=== PATIENT | male | born 1955 | race Caucasian/White ===

== ENCOUNTER 2021-02-10 18:56 | Emergency (ER) | payer MEDICARE, OTHER, SELFPAY ==
--- NOTE | ~2021-02-10 | XR_ITS ---
EXAMINATION: XR chest 2V EXAM DATE: 02/10/2021 19:17 INDICATION: Chest pain. TECHNIQUE: Frontal and lateral projections of the chest obtained and reviewed. There is no prior derick dy for comparison. FINDINGS: Scattered bibasilar subsegmental atelectasis. Pneumonia not excludable. There is no pneumo thorax suspected. There are no pleural effusions. Cardiomediastinal silhouette is normal. There are n o osseous abnormalities identified. IMPRESSION: Scattered basilar linear atelectasis. Pneumonia not excludable. Reviewed, dictated and finalized at location A.
[2021-02-10 19:02] VITALS: PULSE 94; RESP 16; TEMP 36.8; O2SAT 97
--- NOTE | 2021-02-10 19:06 | ECG_ITS ---
Measurements Intervals [place] Rate: 93 P: 72 CA: 160 QRS: -29 QRSD: 90 T: 28 QT: 332 QTc: 414 Interpretive Statements SINUS RHYTHM ATRIAL PREMATURE COMPLEX LOW QRS VOLTAGE IN PRECORDIAL LEADS POOR R WAVE PROGRESSION, ANTERIOR LEADS BASELINE ARTIFACT- I, II, III, AVR, AVL,A VF, V1-V2, V6 BORDERLINE ECG Electronically Signed On 02-11-2021 6:26:13 CDT by Torrey Chris D.O.
[2021-02-10 19:08] VITALS: BP 150/90; PULSE 94; RESP 24; O2SAT 96
[2021-02-10 19:14] LABS: Basophils Absolute Auto 0.1 K/mm3 (0.0-0.1); Basophils Percent Auto 0.4 % (0.2-1.2); Eosinophils Absolute Auto 0.2 K/mm3 (0-0.3); Eosinophils Percent Auto 0.6 % (0-4.4); Hematocrit 47.2 % (42.0-52.0); Hemoglobin 14.4 g/dL (14.0-18.0); Immature Granulocyte Percent A 0.3 % (0-0.5); Lymphocytes Absolute Auto 31.17 K/mm3 (0.9-3.2); Lymphocytes Percent Auto 80.6 % (18.3-44.2); Mean Corpuscular HGB Conc 30.5 g/dl (32-36); Mean Platelet Volume 10.4 fl (7.4-10.4); Monocytes Absolute Auto 2.9 K/mm3 (0.1-0.6); Monocytes Percent Auto 7.5 % (2.6-8.5); Neutrophils Absolute Auto 4.1 K/mm3 (1.3-6.7); Neutrophils Percent Auto 10.6 % (45.5-73.1); Nucleated Red Blood Cells Perc 0.1 % (0.0-0.2); Platelet Count Result 273 k/mm3 (150-375); Red Blood Count 4.97 M/mm3 (4.6-6.20); Red Cell Distribution Width 16.7 % (11.5-14.5); White Blood Count 38.7 K/mm3 (4.5-10.0)
[2021-02-10 19:24] LABS: Anion Gap 9 mmol/L (8-16); Blood Urea Nitrogen 15 mg/dL (9-20); Calcium 9.8 mg/dL (8.4-10.2); Carbon Dioxide 33 mmol/L (22-30); Chloride 95 mmol/L (98-107); Estimated CRCL calculation 77 ml/min; Estimated Glomerular Filt Rate 60; Glucose 134 mg/dL (65-110); Potassium 4.6 mmol/L (3.4-5.0); Sodium 137 mmol/L (137-145)
[2021-02-10] MEDS: ASPIRIN 81 MG CHEWABLE TABLET 324 MG PO (19:26)
[2021-02-10 19:32] LABS: INR 0.8; Partial Thromboplastin Time 26.7 SECONDS (22.3-36.8); Prothrombin Time 11.5 Seconds (11.1-14.7)
[2021-02-10 19:36] LABS: Troponin I < 0.012 ng/mL (0.000-0.034)
--- NOTE | 2021-02-10 20:03 | ED.GENADULT ---
HPI - General Adult General Chief complaint: Chest Pain Stated complaint: diff breathing Time Seen by Provider: 02/10/21 19:15 History of Present Illness HPI narrative: Patient 65-year-old gentleman who presents the emergency department with chief complaint of shortness of breath and chest discomfort. Patient states that he used a new cleaning device for his CPAP machine and noticed that it felt a little strange and woke up and felt a little short of breath. The patient states that subsequently it has been improving slowly through the day and he decided to come to the emergency department for evaluation. The patient denies significant cardiac history Related Data Home Medications Medication Instructions Recorded Confirmed allopurinol 300 mg tablet 300 mg PO DAILY 03/26/20 blood ketone glucose monitor #1 each 03/26/20 ergocalciferol (vitamin D2) 50 mcg 50 mcg PO DAILY 03/26/20 (2,000 unit) capsule fenofibrate nanocrystallized 145 145 mg PO DAILY 03/26/20 mg tablet gemfibrozil 600 mg tablet 600 mg PO DAILY 03/26/20 insulin glargine 100 unit/mL (3 25 unit SUB-Q DAILY ml 03/26/20 mL) subcutaneous pen liraglutide 0.6 mg/0.1 mL (18 mg/3 0.6 mg SUB-Q DAILY 03/26/20 mL) subcutaneous pen injector losartan 25 mg tablet 12.5 mg PO DAILY tablet 03/26/20 mycophenolate mofetil 500 mg tablet 1,000 mg PO Q12H 03/26/20 omega-3 acid ethyl esters 1 gram 2 cap PO DAILY cap 03/26/20 capsule pen needle, diabetic 32 gauge x #10 each 03/26/20/32 potassium citrate 10 mEq (1,080 2,160 mg PO BID 03/26/20 mg) tablet,extended release sildenafil 100 mg tablet 100 mg PO DAILY PRN 03/26/20 tacrolimus 1 mg capsule, 1 mg PO Q12H 03/26/20 immediate-release Allergies Allergy/AdvReac Type Severity Reaction Status Date / Time No Known Allergies Allergy Verified 02/10/21 19:16 Review of Systems Review of Systems: Narrative: A 10 system review of systems was completed on the patient and is negative except for what is stated in the HPI. Nursing and ancillary documentation was reviewed. [facility] Past Medical History Medical History Abscess of chest wall Anemia Ankle pain CPAP (continuous positive airway pressure) dependence Disease of thyroid gland Dysuria Hematuria MALACHI on CPAP Surgical History Surgical History History of cataract extraction History of hernia repair History of liver transplant Family History Family History Mother Heart disease Hypertension Diabetes mellitus Renal disease Social History Social History Smoking status: Never smoker Alcohol intake: never Exam Narrative: Exam Narrative: GENERAL: Well-appearing, well-nourished, and in no acute distress. HEAD: Normocephalic, atraumatic. EYES: PERRLA and EOMI. ENT: Nares clear, no rhinorrhea or epistaxis. Mucous membranes moist. NECK: Supple. CHEST: Clear to auscultation. No respiratory distress. HEART: Regular rate and rhythm. No murmur heard. Normal peripheral pulses. ABDOMEN: Soft, nontender, nondistended, normal active bowel sounds. EXTREMITIES: Normal range of motion. No edema. SKIN: Warm, dry, no rash. NEURO: No focal deficits. Alert and oriented x3. PSYCH: Normal mood and affect. Course Vital Signs Vital signs: Vital Signs Temperature 36.8 C 02/10/21 19:02 Pulse Rate 94 02/10/21 19:02 Respiratory Rate 16 02/10/21 19:02 Pulse Oximetry 97 02/10/21 19:02 Temperature 36.8 C 02/10/21 19:02 Pulse Rate 117 H 02/10/21 21:23 Respiratory Rate 28 H 02/10/21 21:23 Blood Pressure 135/85 02/10/21 21:23 Pulse Oximetry 96 02/10/21 20:30 Medical Decision Making Vital Signs Vital Signs: Vital Signs Temperature 36.8 C 02/10/21 19:02 Pu
[2021-02-10 20:30] VITALS: BP 148/86; PULSE 86; RESP 20; O2SAT 96
[2021-02-10 21:23] VITALS: BP 135/85; PULSE 117; RESP 28
[2021-02-10 21:48] LABS: Add Urine Microscopic? YES; Appearance Urine Clear (Clear); Bilirubin Urine Negative (Negative); Blood Urine 2+ (Negative); Color Urine Yellow (Yellow); Glucose Urine UA Negative (Negative); Ketones Urine Negative (Negative); Leukocyte Esterase Ur Negative LEU/UL (Negative); Nitrate Urine Negative (Negative); Protein Urine Negative (Negative); Specific Grav Ur 1.012 (1.001-1.035); Urobilinogen Urine Negative mg/dL (<2.0); WBC Urine 0-3 /hpf
[2021-02-10 22:44] LABS: Troponin I < 0.012 ng/mL (0.000-0.034)
[2021-02-10 23:30] VITALS: BP 135/85; PULSE 97; RESP 29; O2SAT 95
== END 2021-02-10 23:31 | disposition home or self-care (01) ==
PROVIDERS: Emergency Medicine; Emergency Provider Emergency Medicine; PCP Internal Medicine
DX: R07.89 Other chest pain (principal); D64.9 Anemia, unspecified; G47.30 Sleep apnea, unspecified
CPT/HCPCS: 36415; 71046; 80048; 81001; 84484; 85025; 85610; 85730; 93005; 99284; A9270

== ENCOUNTER 2021-11-06 08:48 | Emergency (ER) | payer MEDICARE, OTHER, SELFPAY ==
[2021-11-06 08:59] VITALS: BP 129/69; PULSE 101; RESP 18; TEMP 36.7; O2SAT 93
--- NOTE | 2021-11-06 10:00 | ED.URI ---
HPI - URI/Sore Throat General Chief Complaint: Upper Respiratory Infection Stated Complaint: Sore Throat Time Seen by Provider: 11/06/21 10:00 Source: patient Mode of arrival: ambulatory Limitations: no limitations History of Present Illness HPI Narrative: 66-year-old male presents with complaint of sore throat for 2 days. Also has redness, drainage, irritation to left eye. Symptoms started after seeing grandchildren. Denies fever. Has had some intermittent headaches, fatigue and body aches. All systems reviewed and negative except as noted above. Related Data Home Medications Medication Instructions Recorded Confirmed allopurinol 11/06/21 cholecalciferol (vitamin D3) 11/06/21 cholecalciferol (vitamin D3) 11/06/21 ezetimibe mg 11/06/21 insulin lispro [Humalog KwikPen SUBCUT 11/06/21 Insulin] levothyroxine [Synthroid] 11/06/21 potassium citrate meq PO 11/06/21 tacrolimus 11/06/21 Allergies Allergy/AdvReac Type Severity Reaction Status Date / Time No Known Allergies Allergy Verified 06/08/21 08:49 Review of Systems Review of Systems: CONSTITUTIONAL: Denies fever, chills, or sweats. EYES: Denies visual changes. Reports redness, discharge, irritation to left eye. ENT: Denies rhinorrhea, congestion. Reports sore throat. Denies otalgia. CARDIOVASCULAR: Denies chest pain, palpitations, or edema. RESPIRATORY: Denies cough or dyspnea. GASTROINTESTINAL: Denies abdominal pain, nausea, vomiting, or diarrhea. GENITOURINARY: Denies dysuria or hematuria. SKIN: Denies rash or itching. MUSCULOSKELETAL: Denies back pain, joint pain, or myalgia. NEUROLOGIC: Denies headache, numbness, or weakness. PSYCHIATRIC: Denies anxiety or depression. All other systems reviewed are negative, except as documented in HPI. [facility] Past Medical History Medical History Abscess of chest wall Anemia Ankle pain CPAP (continuous positive airway pressure) dependence Disease of thyroid gland Dysuria Hematuria MALACHI on CPAP Surgical History Surgical History History of cataract extraction History of hernia repair History of liver transplant Family History Family History Mother Heart disease Hypertension Diabetes mellitus Renal disease Social History Social History Smoking status: Never smoker Alcohol intake: never Comments At time of signature, agree with nursing past medical, surgical, social and family history. There is no relevant family history pertinent to the presenting complaint. Exam Narrative: GENERAL: This is a well-nourished, well-developed patient, in no apparent distress. HEAD: normocephalic, atraumatic. EYES: PERRL. Left sclera and conjunctive a erythematous, swelling to conjunctive a. Yellow purulent drainage noted to left eye. Vision is grossly intact. EARS: External ears normal, auditory canals clear and without drainage, TMs normal without perforation. Hearing grossly intact. NOSE: External nose normal with no obvious nasal discharge, nares without redness, no rhinorrhea. THROAT: Mucous membranes moist, erythema and swelling to posterior pharynx. NECK: Neck supple, non-tender without lymphadenopathy, masses or thyromegaly. CARDIOVASCULAR: Regular rate and rhythm without murmurs, gallops, or rubs. RESPIRATORY: Clear to auscultation. Breath sounds equal bilaterally. No wheezes, rales, or rhonchi. SKIN: warm, Dry, intact with no suspicious lesions or rash, good texture and turgor. NEURO: awake, alert, and oriented to person, place and time. There were no obvious focal neurologic abnormalities. EXTREMITIES: Normal range of motion to all extremities. Course Course Level of Care: Express Care Visit Vital Signs Vital signs: Vital Signs Temperature 36.7 C
== END 2021-11-06 10:10 | disposition home or self-care (01) ==
PROVIDERS: Emergency Provider Nurse Practitioner Family; PCP Internal Medicine
DX: H10.32 Unspecified acute conjunctivitis, left eye (principal); J02.9 Acute pharyngitis, unspecified; G47.33 Obstructive sleep apnea (adult) (pediatric); Z98.49 Cataract extraction status, unspecified eye; Z94.4 Liver transplant status; E07.9 Disorder of thyroid, unspecified
CPT/HCPCS: 87081; 87880; 99213; G0463

== ENCOUNTER 2022-09-19 13:10 | Outpatient (NON) | payer MEDICARE, OTHER, SELFPAY | END 2022-09-19 13:11 | disposition home or self-care (01) | LOC: ANHLAB 13:11 | PROVIDERS: PCP Internal Medicine; Visit Provider Nurse Practitioner | DX: C44.42 Squamous cell carcinoma of skin of scalp and neck (principal) | CPT/HCPCS: 88305; 88331; 88332 ==

== ENCOUNTER 2022-11-18 08:33 | Emergency (ER) | payer MEDICARE, OTHER, SELFPAY ==
--- NOTE | ~2022-11-18 | CT_ITS ---
EXAMINATION: CT abdomen pelvis wo con DATE: 11/18/2022 09:51 INDICATION: Right flank pain TECHNIQUE: Computed tomography (CT) of the abdomen and pelvis was performed without intravenous contr ast. The dose-length product (DLP) was 1716.18 mGy-cm. Automated exposure control and iterative recon struction technique were employed. COMPARISON: 12/27/2011 FINDINGS: Minimal dependent atelectasis is present in the lung bases. The heart size is normal. Gynec omastia is noted. There is calcified coronary artery atherosclerosis. The gallbladder is surgically a bsent. The liver, spleen, pancreas, and adrenal glands are normal. There is mild atrophy of the kidne ys. Cysts of the kidneys measure up to 8.7 cm on the right. There is a 12 mm nonobstructing stone of the left kidney lower pole. No stones are identified in the ureters or bladder. No hydronephrosis or hydroureter. No pathologically enlarged abdominal or pelvic lymph nodes are identified. No free intra peritoneal gas or evidence of bowel obstruction. There is a moderate-sized left lower quadrant ventra l hernia containing fat. The appendix is normal. There is severe lumbar spondylosis. IMPRESSION: 1. No CT correlate for the patient's symptoms. 2. Nonobstructing left nephrolithiasis. Reviewed, dictated and finalized at location B.
[2022-11-18 08:37] VITALS: BP 125/83; PULSE 64; RESP 16; TEMP 36.7; O2SAT 97
[2022-11-18 08:56] LABS: Basophils Percent Auto 0.7 % (0.2-1.2); Eosinophils Absolute Auto 0.1 K/mm3 (0-0.3); Eosinophils Percent Auto 1.7 % (0-4.4); Hematocrit 47.2 % (42.0-52.0); Hemoglobin 14.5 g/dL (14.0-18.0); Immature Granulocyte Absolute 0.06 K/mm3 (0.00-0.031); Lymphocytes Absolute Auto 2.34 K/mm3 (0.9-3.2); Lymphocytes Percent Auto 40.9 % (18.3-44.2); Mean Corpuscular HGB Conc 30.7 g/dl (32-36); Mean Corpuscular Hemoglobin 29.5 pg (26-34); Mean Corpuscular Volume 95.9 fl (80-100); Mean Platelet Volume 11.3 fl (7.4-10.4); Monocytes Absolute Auto 0.4 K/mm3 (0.1-0.6); Monocytes Percent Auto 7.3 % (2.6-8.5); Neutrophils Absolute Auto 2.8 K/mm3 (1.3-6.7); Neutrophils Percent Auto 48.4 % (45.5-73.1); Platelet Count Result 142 k/mm3 (150-375); Red Blood Count 4.92 M/mm3 (4.6-6.20); Red Cell Distribution Width 13.9 % (11.5-14.5); White Blood Count 5.7 K/mm3 (4.5-10.0)
[2022-11-18 09:11] LABS: Alanine Aminotransferase 46 U/L (6-50); Albumin Level 4.3 g/dL (3.5-5.1); Alkaline Phosphatase 62 U/L (38-126); Anion Gap 6 mmol/L (8-16); Aspartate Amino Transferase 43 U/L (17-59); Bilirubin,Total 0.8 mg/dL (0.2-1.3); Blood Urea Nitrogen 16 mg/dL (9-20); Calcium 8.7 mg/dL (8.4-10.2); Carbon Dioxide 31 mmol/L (22-30); Chloride 100 mmol/L (98-107); Estimated CRCL calculation 74 ml/min; Estimated Glomerular Filt Rate 55; Glucose 166 mg/dL (65-110); Potassium 4.8 mmol/L (3.4-5.0); Sodium 137 mmol/L (137-145)
--- NOTE | 2022-11-18 09:15 | ED.BACK ---
HPI - Back Pain/Injury General Chief Complaint: Back Pain/Injury Stated Complaint: back pain Time Seen by Provider: 11/18/22 09:03 History of Present Illness HPI Narrative: 67-year-old male with a history of MALACHI and nephrolithiasis reports for evaluation of right flank pain that started 6 days ago. Patient reports the pain was intermittent at the onset of pain, improved with Tylenol, ice and heat. States yesterday the pain became constant and worsened which caused him to present to the emergency department today. Reports a history of multiple ureterolithiasis, is followed by urology at [facility]. Reports today's pain feels similar to previous ureterolithiasis. He has a known left nephrolithiasis, but is unsure on the right. Denies dysuria, urinary frequency or urgency, hematuria, abdominal pain, nausea, vomiting, fever, body aches, chills. Denies injury to back, saddle anesthesia, numbness or weakness in his legs, bladder or urinary retention or incontinence. Related Data Home Medications Medication Instructions Recorded Confirmed allopurinol 300 mg tablet 11/06/21 06/08/22 cholecalciferol (vitamin D3) 50 11/06/21 06/08/22 mcg (2,000 unit) tablet cholecalciferol (vitamin D3) 50 11/06/21 06/08/22 mcg (2,000 unit) tablet ezetimibe 10 mg tablet mg 11/06/21 06/08/22 insulin lispro 100 unit/mL subcut 11/06/21 06/08/22 subcutaneous pen (Humalog KwikPen (U-100) Insulin) levothyroxine 300 mcg tablet 11/06/21 06/08/22 (Synthroid) potassium citrate 10 mEq (1,080 meq PO 11/06/21 06/08/22 mg) tablet,extended release tacrolimus 1 mg capsule, 11/06/21 06/08/22 immediate-release acalabrutinib 100 mg capsule 100 mg PO Q12H 06/08/22 06/08/22 ([place]ence) Allergies Allergy/AdvReac Type Severity Reaction Status Date / Time No Known Allergies Allergy Verified 11/18/22 10:11 Review of Systems Review of Systems: CONSTITUTIONAL: Denies fever, chills EYES: Denies visual changes, redness, or discharge. ENT: Denies rhinorrhea, congestion, sore throat, or otalgia. CARDIOVASCULAR: Denies chest pain, palpitations, or edema. RESPIRATORY: Denies cough or dyspnea. GASTROINTESTINAL: Denies abdominal pain, nausea, vomiting, or diarrhea. GENITOURINARY: Denies dysuria or hematuria. SKIN: Denies rash or itching. MUSCULOSKELETAL: See HPI NEUROLOGIC: Denies headache, numbness, dizziness, or weakness. PSYCHIATRIC: Denies anxiety or depression. [facility] Past Medical History Medical History Abscess of chest wall Anemia Ankle pain CPAP (continuous positive airway pressure) dependence Disease of thyroid gland Dysuria Hematuria MALACHI on CPAP Surgical History Surgical History History of cataract extraction History of hernia repair History of liver transplant Family History Family History Mother Heart disease Hypertension Diabetes mellitus Renal disease Social History Social History Smoking status: Never smoker Alcohol intake: never Exam Narrative: GENERAL: Well-appearing, well-nourished, and in no acute distress. Patient resting comfortably in exam bed. He is pleasant and conversational. HEAD: Normocephalic, atraumatic. EYES: PERRLA and EOMI. ENT: Nares clear, no rhinorrhea or epistaxis. Mucous membranes moist. Oropharynx without tonsillar hypertrophy exudate or other lesions. NECK: Supple. CHEST: Clear to auscultation. No respiratory distress. No wheezes rales or rhonchi HEART: Regular rate and rhythm. No murmur heard. Normal peripheral pulses. ABDOMEN: Soft, nontender, nondistended, normal active bowel sounds. No CVA tenderness bilaterally. BACK: No midline vertebral spinous tenderness, step-offs or deformities. Tenderness to the right flank extending to R iliac crest. No
[2022-11-18 09:26] LABS: Appearance Urine Clear (Clear); Bacteria Urine None Seen /hpf; Bilirubin Urine Negative (Negative); Color Urine Yellow (Yellow); Glucose Urine UA Trace mg/dL (Negative); Ketones Urine Negative (Negative); Leukocyte Esterase Ur Negative LEU/UL (Negative); Nitrate Urine Negative (Negative); Non Pathogenic Casts 0-2; Protein Urine Negative (Negative); Specific Grav Ur 1.015 (1.001-1.035); Squamous Epithelial Cell Urine None seen /hpf (Few); Urobilinogen Urine 0.2 mg/dL (<2.0); WBC Urine 0-5 /hpf; pH Urine 6.5 (5.0-9.0)
[2022-11-18 09:28] LABS: Add Urine Microscopic? YES
[2022-11-18 09:52] LABS: Lipase 240 U/L (23-300)
[2022-11-18] MEDS: MORPHINE SULFATE (*CRX) 4 MG/ML INJ IV PUSH (09:55)
[2022-11-18] MEDS: SODIUM CHLORIDE 0.9% IV 1,000 ML 999 ML IV CONT (09:55)
[2022-11-18] MEDS: ACETAMINOPHEN 500 MG TABLET 1000 MG PO (09:56)
[2022-11-18 11:15] VITALS: BP 124/82; PULSE 68; RESP 16; O2SAT 96
== END 2022-11-18 11:15 | disposition home or self-care (01) ==
PROVIDERS: Emergency Medicine; Emergency Provider Physician Assistant; PCP Internal Medicine
DX: M54.9 Dorsalgia, unspecified (principal)
CPT/HCPCS: 36415; 74176; 80053; 81001; 83690; 85025; 96361; 96374; 99284; A9270; J2270; J7030

== ENCOUNTER 2023-01-20 11:51 | Outpatient (CLI) | payer MEDICARE, OTHER, SELFPAY ==
--- NOTE | ~2023-01-20 | XR_ITS ---
EXAM: XR abdomen/kub 1V DATE: 01/20/2023 12:13 HISTORY: KIDNEY STONE, PT DENIES SYMPTOMS . COMPARISON: 01/30/2012; CT abdomen pelvis 11/10/2022. FINDINGS: Atelectasis/scar in the left lung base. Cholecystectomy clips. Normal bowel gas pattern. 1 3 mm calcification projecting over the left inferior pole. Pelvic phleboliths. Degenerative changes i n the spine and bilateral hips. IMPRESSION: Left nephrolithiasis. Reviewed, dictated and finalized at location K. IMPRESSION: Left nephrolithiasis.
== END 2023-01-20 11:52 | disposition home or self-care (01) ==
LOC: ANHIMG 12:01
PROVIDERS: PCP Internal Medicine; Visit Provider Urology
DX: N20.0 Calculus of kidney (principal)
CPT/HCPCS: 74018

== ENCOUNTER 2023-07-11 10:14 | Outpatient (CLI) | payer MEDICARE, OTHER, SELFPAY ==
--- NOTE | ~2023-07-11 | XR_ITS ---
EXAMINATION: XR abdomen/kub 1V INDICATION: Left-sided kidney stone TECHNIQUE: Supine views of the abdomen were obtained on 2 radiographs. COMPARISON: 01/20/2023 FINDINGS: There is an 11 mm stone of the left kidney. Phleboliths are noted in the pelvis. No additio nal urolithiasis is identified. The bowel gas pattern is normal. There is severe lumbar spondylosis. 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 IMPRESSION: 1. Left nephrolithiasis. Reviewed, dictated and finalized at location L. O RECORDING ENGINEER IMPRESSION: 1. Left nephrolithiasis.
== END 2023-07-11 10:15 | disposition home or self-care (01) ==
PROVIDERS: PCP Internal Medicine; Visit Provider Urology
DX: N20.0 Calculus of kidney (principal)
CPT/HCPCS: 74018

== ENCOUNTER 2024-03-26 10:54 | Outpatient (CLI) | payer MEDICARE, OTHER, SELFPAY ==
--- NOTE | ~2024-03-26 | XR_ITS ---
EXAMINATION: XR abdomen/kub 1V DATE: 03/26/2024 11:22 INDICATION: Calcium kidney stone. TECHNIQUE: A supine view of the abdomen on 3 radiographs was obtained. COMPARISON: CT abdomen and pelvis 11/18/2022 FINDINGS: There are no dilated loops of bowel. There is a phlebolith in left pelvis. There is a 12 mm stone in left kidney. There are surgical clips in right abdomen. IMPRESSION: 1. 12 mm left kidney stone. Reviewed, dictated and finalized at location A. IMPRESSION: 1. 12 mm left kidney stone.
== END 2024-03-26 10:55 | disposition home or self-care (01) ==
LOC: ANHIMG 11:01
PROVIDERS: PCP Internal Medicine; Visit Provider Urology
DX: N20.0 Calculus of kidney (principal)
CPT/HCPCS: 74018

== ENCOUNTER 2025-03-31 08:29 | Outpatient (CLI) | payer MEDICARE, OTHER, SELFPAY ==
--- NOTE | ~2025-03-31 | XR_ITS ---
Abdominal radiograph(s) INDICATION: Kidney stone COMPARISON: Abdominal x-ray 03/26/2024 TECHNIQUE: 2 views AP abdomen FINDINGS: Interval aortic endograft repair. Scattered colonic stool. Small bowel gaseous distention. 13 mm left kidney lower pole stone remains in place. No other nephroureteral calculi identified. Pelvic phleboliths. No acute bony abnormality. IMPRESSION: 1. 13 mm stone left kidney remains in place. 2. No other acute abnormality.. Reviewed, dictated and finalized at location R.
--- OUTSIDE RECORDS SUMMARY | 2025-03-31 08:43 | XMS_ITS | Encounter Summary ---
Author Organization [facility] Address [address] [place] [address] Care Team Providers Care Biological Aide Name Role Phone Elias Zaragoza MD Primary Care Provider [phone] Heather Shine RN Unavailable Unavailable Sergey Mcneill MD Unavailable [phone] Dio De Leon MD Unavailable Dawson Smith MD Unavailable Encounter Details Date Type Department Care Team (Late st Contact Info) Description 11/17/2022 Lab Requisition [facility] Care DermPath Lab [address] [place] [id number] Steve Shetty MD [address] [place] [id number] Social History Tobacco Use Types Packs/Day Years Used Date Smoking Tobacco: Never Smokeless Tobacco: Never Alcohol Use Standard Drinks/Week Comments No 0 (1 standard drink = 0.6 oz pur e alcohol) AUDIT-C Answer Date Recorded Q1: How often do you have a drink containing alcohol? Never 11/23/2021 Q2: How many drinks containi ng alcohol do you have on a typical day when you are drinking? Patient does not drink Q3: How often do you have si x or more drinks on one occasion? 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 Answer Date of Assessment Author No 11/23/2021 11:23 AM Tanya Wilson RN * Is person blind or have serious difficulty seeing? Answer Date of Assessment Author No 11/23/2021 11:23 AM Tanya Wilson RN * Does person have serious difficulty walking/climbing stairs? Answer Date of Assessment Author No 11/23/2021 11:23 AM Tanya Wilson RN * Does person have difficulty dressing/bathing? Answer Date of Assessment Author No 11/23/2021 11:23 AM Tanya Wilson RN * Does person have difficulty doing errands alone? Answer Date of Assessment Author No 11/23/2021 11:23 AM Tanya Wilson RN documented as of this encounter Mental Status * Does person have difficulty concentrating/remembering/making decisions? Answer Entry Date Author No 11/23/2021 11:23 AM Tanya Wislon RN documented in this encounter Plan of Treatment Upcoming Encounters Date Type Department Care Team (Late st Contact Info) Description 04/01/2025 9:00 AM CDT Office Visit [facility] - GI 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 Author Medication Management General On track( 025 8:59 AM GLASS RIBBON MACHINE OPERATOR) No Mary Mcclain RN Note: Expected end date: Ongoing Interventions: Take all medications as prescribed Let your doctor know right away about any changes in your medications Make sure to request a refill of your medication at least one week prior to your last dose Safety General On track( 024 8:50 AM CDT) No Mary Stallworth RN Note: Expected end date: ongoing Interventions: Your nurse will assess your risk for falls/injury each visit documented as of this encounter Procedures Procedure Name Priority Date/Time Associated Diagnosis Comments DERMATOPATHOLOGY Routine 11/16/2022 12:0 0 AM CDT documented in this encounter Results * DERMATOPATHOLOGY (11/16/2022 12:00 AM CDT) Case Report Dermatopathology Report Case: [id number] Authorizing Provider: Steve Shetty MD Collected: 11/16/2022 12:00 AM Ordering Location: [facility] D[facility] Lab Received: 11/17/2022 05:33 AM Pathologist: Laquita Carr MD Specimen: Skin, right mid helix 12:45 PM CDT DERMATOPATHOLOGY LABORATORY Final Diagnosis Specimen A. SKIN, right mid helix: SQUAMOUS CELL CARCINOMA IN SITU, VERRUCOUS-HYPERTROP HIC TYPE; PRESENT AT THE BASE OF THE SPECIMEN (D04.21) (see microscopic description and comment) 12:45 PM CDT DERMATOPATHOLOGY LABORATORY at 1244 CDT Clinical History SCCA vs. [place] vs. Other. Path# [id number] 12:45 PM CDT DERMATOPATHOLOGY LABORATORY Gross Description Specimen A: Received is one formalin filled container labeled with the patient's name and designated right mid helix. The specimen consists of a shave biopsy measuring [id number]. Jar 0. 12:45 PM CDT DERMATOPATHOLOGY LABORATORY Microscopic Description Specimen A. SKIN, right mid helix: The epidermis is acanthotic and shows full thickness disorderly maturation of keratinocytes, mitoses at different levels, and dyskeratotic cells. There is overlying parakeratosis and hyperkeratosis. The lesion extends to the base of the biopsy. COMMENT: An invasive squamous cell carcinoma cannot be ruled out. 3 12:45 PM CDT DERMATOPATHOLOGY LABORATORY Disclaimer An external and internal positive and negative controls are appropriate for the histochemical, immunohistochemical and immunofluorescence stain(s) in this case (if any), except where stated explicitly. The performance characteristics of the stain(s) cited in this report were developed and its performance characteristic determined by the Dermatopathology Laboratory at [facility], directed by Dr. Sylvie Mills. These tests need not be, and therefore are not, approved by the [place] Food and Drug Administration. The tests are used for clinical purposes. Billing Codes Specimen Charges Stain Charges 18015 1 3 12:45 PM CDT DERMATOPATHOLOGY LABORATORY Embedded Images 3 12:45 PM CDT DERMATOPATHOLOGY LABORATORY Pathology/Cytolog y TISSUE SPECIMEN FROM SKIN / Unknown 11/16/2022 11/17/2022 5:33 AM CDT us Steve Shetty MD LAB - PATHOLOGY/CYTOLOGY ORDER LAVON Final Result DERMATOPATHOLOGY LABORATORY [facility] - Department of Dermatology [address], [address] [phone] documented in this encounter Visit Diagnoses Not on filedocumented in this encounter Care Teams Biological Aide Relationship Specialty Start Date End Date Elias Zaragoza MD PCP - General 01/16/18 Heather Shine, RN Registered Nurse Hepatology 01/30/18 Sergey Mcneill MD [address] [place] [address] OF HEMATOLOGY & [place] [address] Hematology and Oncology 05/05/20 Dio De Leon MD [address] [place] [address] OF HEMATOLOGY [place] [address] Endocrinology 02/08/22 Dawson Smith MD [address] [address] Vascular Surgery 02/05/25 documented as of this encounter
--- OUTSIDE RECORDS SUMMARY | 2025-03-31 08:43 | XMS_ITS | Encounter Summary ---
Author Organization [facility] Address [address] [facility] [place] [address] Care Team Providers Care Nurses' Aide Name Role Phone Elias Zaragoza MD Primary Care Provider [phone] Heather Shine RN Unavailable Unavailable Sergey Mcneill MD Unavailable Dio De Leon MD Unavailable Dawson Smith MD Unavailable Reason for Visit * Reason Onset Date Comments MEDICATION REFILL 12/31/2018 Encounter Details Date Type Department Care Team (Late st Contact Info) Description 12/31/2018 Refill [facility] GI [address] [place] [address] Aislinn Dodge, PAStevenC [address] [place] [phone] MEDICATION REFILL Social History Tobacco Use Types Packs/Day Years Used Date Smoking Tobacco: Never Smokeless Tobacco: Never Alcohol Use Standard Drinks/Week Comments No 0 (1 standard drink = 0.6 oz pur e alcohol) Sex and Gender Information Value Date Recorded Sex Assigned at Not on file 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 Gender Identity Not on file Sexual Orientation Not on file documented as of this encounter Plan of Treatment Upcoming Encounters Date Type Department Care Team (Late st Contact Info) Description 04/01/2025 9:00 AM CDT Office Visit [facility] - GI [address] [facility], [place] [phone] Aislinn Dodge PA-C [address] [facility] 3L DIV [place] [phone] 08/06/2025 12:45 PM GEOGRAPHIC 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 SYSTEMS ENGINEER Appointment [facility] CANCER CARE DRAWSTATION [address] [facility], 2nd [place] [address] 08/06/2025 1:00 PM GEOGRAPHIC INFORMATION SYSTEMS ENGINEER Office Visit [facility] - Hematology/Oncology [address] [place] [phone] Sergey Mcneill MD [address] DIV OF HEMATOLOGY & [place] [address] documented as of this encounter Visit Diagnoses Not on filedocumented in this encounter Additional Health Concerns Infection Onset Date Last Indicated Resolved Time COVID-19 Under Investigation 12/06/2021 12/06/2021 12/06/2021 10:00 PM CDT documented as of this encounter Care Teams Nurses' Aide Relationship Specialty Start Date End Date Elias Zaragoza MD PCP - General 01/16/18 Heather Shine, ROBERT Registered Nurse Hepatology 01/30/18 Sergey Mcneill MD [address] DIV OF HEMATOLOGY & [place] [address] Hematology and Oncology 05/05/20 Dio De Leon MD [address] DIV OF HEMATOLOGY & [place] [address] Endocrinology 02/08/22 Dawson Smith MD [facility]. [address] [address] Vascular Surgery 02/05/25 documented as of this encounter
--- OUTSIDE RECORDS SUMMARY | 2025-03-31 08:43 | XMS_ITS | Encounter Summary ---
Author Organization [facility] Address [address] [facility] [place] [address] Care Team Providers Care Assembly Machine Tender Name Role Phone Elias Zaragoza MD Primary Care Provider Heather Shine RN Unavailable Unavailable Sergey Mcneill MD Unavailable Dio De Leon MD Unavailable Dawson Smith MD Unavailable Encounter Details Date Type Department Care Team (Late st Contact Info) Description 01/23/2020 Lab Requisition [facility] Care Derm[facility] Lab [address] [facility] [place] [phone] Steve Shetty MD [address] [facility] [place] [address] Social History Tobacco Use Types Packs/Day Years Used Date Smoking Tobacco: Never Smokeless Tobacco: Never Alcohol Use Standard Drinks/Week Comments No 0 (1 standard drink = 0.6 oz pur e alcohol) Sex and Gender Information Value Date Recorded Sex Assigned at Not on file Legal Sex Male 1:09 PM WRAPPER STITCHER Gender Identity Not on file Sexual Orientation Not on file documented as of this encounter Plan of Treatment Upcoming Encounters Date Type Department Care Team (Late st Contact Info) Description 04/01/2025 9:00 AM CDT Office Visit [facility] - GI [address] [facility], [place] [phone] Aislinn Dodge PA-C [address] [facility] 3L [place] [address] 08/06/2025 12:45 PM WRAPPER STITCHER Appointment [facility] CANCER CARE DRAWSTATION [address] [facility], 2nd [place] [address] 08/06/2025 1:00 PM WRAPPER STITCHER Office Visit [facility] - Hematology/Oncology [address] [place] [phone] Sergey Mcneill MD [address] [facility] OF HEMATOLOGY & [place] [address] documented as of this encounter Goals Goal Patient Goal Type Associated Problems Recent Progress Patient-Stated? Author Medication Management General On track( 025 8:59 AM WRAPPER STITCHER) Mary Ricardo, RN Note: Expected end date: Ongoing Interventions: Take all medications as prescribed Let your doctor know right away about any changes in your medications Make sure to request a refill of your medication at least one week prior to your last dose documented as of this encounter Procedures Procedure Name Priority Date/Time Associated Diagnosis Comments DERMATOPATHOLOGY Routine 01/21/2020 12:0 0 AM CDT documented in this encounter Results * DERMATOPATHOLOGY (01/21/2020 12:00 AM CDT) Case Report Dermatopathology Report Case: [id number] Authorizing Provider: Steve Shetty MD Collected: 01/21/2020 12:00 AM Ordering Location: [facility] DermPath Lab Received: 01/23/2020 10:51 AM Pathologist: Laquita Carr MD Specimens: A) - Skin, right post shoulder B) - Skin, left calf 0 1:07 PM CDT DERMATOPATHOLOGY LABORATORY Final Diagnosis Specimen A. SKIN, right post shoulder: SQUAMOUS CELL CARCINOMA IN SITU, PRESENT AT THE BASE OF THE SPECIMEN (D04.61) (see microscopic description and comment) Specimen B. SKIN, left calf: SQUAMOUS CELL CARCINOMA IN SITU, VERRUCOUS-HYPERTROP HIC TYPE (D04.72) 0 1:07 PM CDT DERMATOPATHOLOGY LABORATORY at 1307 CDT Clinical History A: BCCA vs SCCA vs irr SK. Path # [id number]. B: BCCA vs SCCA vs irr SK. Path # [id number]. 0 1:07 PM CDT DERMATOPATHOLOGY LABORATORY Gross Description Specimen A: Received is one formalin filled container labeled with the patient's name and designated right post shoulder. The specimen consists of a shave biopsy measuring 8y5s6me. Jar 0. Specimen B: Received is one formalin filled container labeled with the patient's name and designated left calf. The specimen consists of a shave biopsy measuring 3g0a0bj. Jar 0. 0 1:07 PM CDT DERMATOPATHOLOGY LABORATORY Microscopic Description Specimen A. SKIN, right post shoulder: The epidermis shows parakeratosis, full thickness disorderly maturation of keratinocytes, mitoses at different levels, and dyskeratotic cells. The lesion extends to the base of the biopsy. COMMENT: An invasive squamous cell carcinoma cannot be ruled out. Specimen B. SKIN, left calf: The epidermis is acanthotic and shows full thickness disorderly maturation of keratinocytes, mitoses at different levels, and dyskeratotic cells. There is overlying parakeratosis and hyperkeratosis. 0 1:07 PM CDT DERMATOPATHOLOGY LABORATORY Disclaimer An external and internal positive and negative controls are appropriate for the histochemical, immunohistochemical and immunofluorescence stain(s) in this case (if any), except where stated explicitly. The performance characteristics of the stain(s) cited in this report were developed and its performance characteristic determined by the Dermatopathology Laboratory at [facility], directed by Dr. Sylvie Mills. These tests need not be, and therefore are not, approved by the [place] Food and Drug Administration. The tests are used for clinical purposes. Billing Codes Specimen Charges Stain Charges 90651 90832 1 1 0 1:07 PM CDT DERMATOPATHOLOGY LABORATORY Embedded Images 0 1:07 PM CDT DERMATOPATHOLOGY LABORATORY Pathology/Cytology TISSUE SPECIMEN FROM SKIN / Unknown 01/21/2020 01/23/2020 10:51 AM CDT Miscellaneous samples (specimen) TISSUE SPECIMEN FROM SKIN / Unknown 01/21/2020 01/23/2020 10:51 AM CDT Steve Shetty MD LAB - PATHOLOGY/CYTOLOGY ORDER LAVON Final Result DERMATOPATHOLOGY LABORATORY [facility] - Department of Dermatology Refinery Process Engineer Center/[id number] [place] [address] documented in this encounter Visit Diagnoses Not on filedocumented in this encounter Additional Health Concerns Infection Onset Date Last Indicated Resolved Time COVID-19 Under Investigation 12/06/2021 12/06/2021 12/06/2021 10:00 PM CDT documented as of this encounter Care Teams Assembly Machine Tender Relationship Specialty Start Date End Date Elias Zaragoza MD PCP - General 01/16/18 Heather Shine, ROBERT Registered Nurse Hepatology 01/30/18 Sregey Mcneill MD [address] [place] [address] OF HEMATOLOGY [place] [address] Hematology and Oncology 05/05/20 Dio De Leon MD [address] [place] [address] OF HEMATOLOGY [place] [address] Endocrinology 02/08/22 Dawson Smith MD [address] [address] Vascular Surgery 02/05/25 documented as of this encounter
--- OUTSIDE RECORDS SUMMARY | 2025-03-31 08:43 | XMS_ITS | Encounter Summary ---
Author Organization [facility] Address [address] [place] [address] Care Team Providers Care Wrapping Machine Operator Name Role Phone Elias Zaragoza MD Primary Care Provider Heather Shine RN Unavailable Unavailable Sergey Mcneill MD Unavailable Dio De Leon MD Unavailable Dawson Smith MD Unavailable Encounter Details Date Type Department Care Team (Late st Contact Info) Description 08/08/2022 Lab Requisition [facility] Care DermPath Lab [address] [facility], [place] [phone] Steve Shetty MD [address] [place] [address] Social History Tobacco Use Types Packs/Day [...] on file Legal Sex Male 1:09 PM ECOLOGICAL RISK ASSESSOR Gender Identity Not on file Sexual Orientation [...] Date Author No 11/23/2021 11:23 AM Tanya Wilson RN documented in this encounter Plan of Treatment Upcoming Encounters Date Type Department Care Team (Late st Contact Info) Description 04/01/2025 9:00 AM CDT Office Visit [facility] - GI [address] [facility], [place] [address] Aislinn Dodge PA-C [address] [place] [address] [address] [place] [phone] 08/06/2025 12:45 PM ECOLOGICAL RISK ASSESSOR Appointment [facility] CANCER CARE DRAWSTATION [address] [place] [address], 2nd [place] [address] 08/06/2025 1:00 PM ECOLOGICAL RISK ASSESSOR Office Visit [facility] - Hematology/Oncology [address] [place] [phone] Sergey Mcneill MD [address] [facility] OF HEMATOLOGY & [place] [address] documented as of this encounter Goals Goal Patient Goal Type Associated Problems Recent Progress Patient-Stated? Author Medication Management General On track( 025 8:59 AM ECOLOGICAL RISK ASSESSOR) No Mary Mcclain, RN Note: Expected end date: Ongoing Interventions: Take all medications as prescribed Let your doctor know right away about any changes in your medications Make sure to request a refill of your medication at least one week prior to your last dose Safety General On track( 024 8:50 AM CDT) No Mary Stallworth, RN Note: Expected end date: ongoing Interventions: Your nurse will assess your risk for falls/injury each visit documented as of this encounter Procedures Procedure Name Priority Date/Time Associated Diagnosis Comments DERMATOPATHOLOGY Routine 08/05/2022 12:0 0 AM ECOLOGICAL RISK ASSESSOR documented in this encounter Results * DERMATOPATHOLOGY (08/05/2022 12:00 AM ECOLOGICAL RISK ASSESSOR) Case Report Dermatopathology Report Case: [id number] Authorizing Provider: Steve Shetty MD Collected: 08/05/2022 12:00 AM Ordering Location: [facility] DermPath Lab Received: 08/08/2022 07:34 AM Pathologist: Laquita Carr MD Specimens: A) - Skin, left lateral elbow B) - Skin, crown C) - Skin, right hand 10:15 AM ECOLOGICAL RISK ASSESSOR DERMATOPATHOLOGY LABORATORY Amended Report At the request of the clinician, change in laterality for specimen A to right lateral elbow. 10:15 AM ECOLOGICAL RISK ASSESSOR DERMATOPATHOLOGY LABORATORY Final Diagnosis Specimen A. 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 SKIN, crown: SQUAMOUS CELL CARCINOMA, WELL DIFFERENTIATED (C44.42) Specimen C. SKIN, right hand: SQUAMOUS CELL CARCINOMA IN SITU, PRESENT AT THE BASE OF THE SPECIMEN (D04.61) (see microscopic description and comment) 10:15 AM [facility] DERMATOPATHOLOGY LABORATORY Amendment electronically signed by Laquita Carr MD on 08/31/2022 at 1015 ECOLOGICAL RISK ASSESSOR at 1331 ECOLOGICAL RISK ASSESSOR Clinical History A: R/O SCCA Path# [id number] B: R/O SCCA Path# [id number] C: SCCA vs AK 10:15 AM [facility] DERMATOPATHOLOGY LABORATORY Gross Description Specimen A: Received is one formalin filled container labeled with the patient's name and designated right lateral elbow. The specimen consists of a shave biopsy measuring 21i99j0 mm. Jar 0. Specimen B: Received is one formalin filled container labeled with the patient's name and designated crown. The specimen consists of a shave biopsy measuring 10x8x1 mm. Jar 0. Specimen C: Received is one formalin filled container labeled with the patient's name and designated right hand. The specimen consists of a shave biopsy measuring 6x5x3 mm. Jar 0. 10:15 AM [facility] DERMATOPATHOLOGY LABORATORY Microscopic Description Specimen A. SKIN, right lateral elbow: Sections show an endo exophytic crateriform lesion with a keratotic plug, formed by confluent follicle-like structures with relatively large keratinocytes. Specimen B. SKIN, crown: Arising in the epidermis and extending into the dermis there are irregularly shaped aggregates of keratinocytes showing evidence of premature cornification. Specimen C. SKIN, right hand: The epidermis shows parakeratosis, full thickness disorderly maturation of keratinocytes, mitoses at different levels, and dyskeratotic cells. The lesion extends to the base of the biopsy. COMMENT: An invasive squamous cell carcinoma cannot be ruled out. 10:15 AM [facility] DERMATOPATHOLOGY LABORATORY Disclaimer An external and internal positive and negative controls are appropriate for the histochemical, immunohistochemical and immunofluorescence stain(s) in this case (if any), except where stated explicitly. The performance characteristics of the stain(s) cited in this report were developed and its performance characteristic determined by the Dermatopathology Laboratory at [facility], directed by Dr. Sylvie Mills. These tests need not be, and therefore are not, approved by the [place] Food and Drug Administration. The tests are used for clinical purposes. Billing Codes Specimen Charges Stain Charges 89172 01942 76965 1 1 1 3 10:15 AM ECOLOGICAL RISK ASSESSOR DERMATOPATHOLOGY LABORATORY Embedded Images 3 10:15 AM ECOLOGICAL RISK ASSESSOR DERMATOPATHOLOGY LABORATORY Pathology/Cytology TISSUE SPECIMEN FROM SKIN / Unknown 08/05/2022 08/08/2022 7:34 AM ECOLOGICAL RISK ASSESSOR Miscellaneous samples (specimen) TISSUE SPECIMEN FROM SKIN / Unknown 08/05/2022 08/08/2022 7:34 AM ECOLOGICAL RISK ASSESSOR Miscellaneous samples (specimen) TISSUE SPECIMEN FROM SKIN / Unknown 08/05/2022 08/08/2022 7:34 AM ECOLOGICAL RISK ASSESSOR Steve Shetty MD LAB - PATHOLOGY/CYTOLOGY ORDER LAVON Edited Result - Final DERMATOPATHOLOGY LABORATORY [facility] - Department of Dermatology [facility] Specialized Medicine [facility] [facility], 3rd Floor [address] [phone] documented in this encounter Visit Diagnoses Not on filedocumented in this encounter Care Teams Wrapping Machine Operator Relationship Specialty Start Date End Date Elias Zaragoza MD PCP - General 01/16/18 Heather Shine, ROBERT Registered Nurse Hepatology 01/30/18 Sergey Mcneill MD [address] [place] [address] OF HEMATOLOGY & [place] [address] Hematology and Oncology 05/05/20 Dio De Leon MD [address] [place] [address] OF HEMATOLOGY & [place] [address] Endocrinology 02/08/22 Dawson Smith MD [facility] [address] [place] [address] Vascular Surgery 02/05/25 documented as of this encounter
--- OUTSIDE RECORDS SUMMARY | 2025-03-31 08:44 | XMS_ITS | Encounter Summary ---
Author Organization [employer] Address [address] [place] [address] Care Team Providers Care Coal Drier Operator Name Role Phone Unavailable Primary Care Provider Unavailabl e Encounter Details Date Type Department Care Team (Late st Contact Info) Description 09/15/2004 Outpatient Historical Division of Neurology 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
--- OUTSIDE RECORDS SUMMARY | 2025-03-31 08:44 | XMS_ITS | Encounter Summary ---
Author Organization [employer] Address [address] [place] [address] Care Team Providers Care Application Designer Name Role Phone Unavailable Primary Care Provider Unavailabl e Encounter Details Date Type Department Care Team (Late st Contact Info) Description 03/30/2005 Outpatient Historical Division of Neurology 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
--- OUTSIDE RECORDS SUMMARY | 2025-03-31 08:44 | XMS_ITS | Encounter Summary ---
Author Organization [employer] Address [address] [place] [address] Care Team Providers Care Cupola Tapper Name Role Phone Unavailable Primary Care Provider Unavailabl e Encounter Details Date Type Department Care Team (Late st Contact Info) Description 04/13/2006 Outpatient Historical Division of Neurology [address] [facility] [address] [address] (Excluded Provider) [place] [address] [facility] [address] [place] [address] Social History Tobacco Use Types Packs/Day Years Used Date Smoking Tobacco: Never Assessed Sex and Gender Information Value Date Recorded Sex Assigned at Not on file Legal Sex Male 4:04 AM SNOW RANGER Gender Identity Not on file Sexual Orientation Not on file documented as of this encounter Plan of Treatment Not on file documented as of this encounter Visit Diagnoses Not on filedocumented in this encounter
--- OUTSIDE RECORDS SUMMARY | 2025-03-31 08:44 | XMS_ITS | Clinical Summary ---
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
--- OUTSIDE RECORDS SUMMARY | 2025-03-31 08:44 | XMS_ITS | Encounter Summary ---
Author Organization [employer] Address [address] [place] [address] Care Team Providers Care Closing Manager Name Role Phone Unavailable Primary Care Provider Unavailabl e Encounter Details Date Type Department Care Team (Late st Contact Info) Description 11/18/1999 Outpatient Historical Division of Neurology 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
--- OUTSIDE RECORDS SUMMARY | 2025-03-31 08:44 | XMS_ITS | Encounter Summary ---
Author Organization [employer] Address [address] [place] [address] Care Team Providers Care Literature Teacher Name Role Phone Unavailable Primary Care Provider Unavailabl e Encounter Details Date Type Department Care Team (Late st Contact Info) Description 11/09/2006 Outpatient Historical Division of Neurology 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
--- OUTSIDE RECORDS SUMMARY | 2025-03-31 08:44 | XMS_ITS | Encounter Summary ---
Author Organization [facility] Address [address] [place] [address] Care Team Providers Care Cnc Cutting Operator Name Role Phone Elias Zaragoza MD Primary Care Provider Heather Shine RN Unavailable Unavailable Sergey Mcneill MD Unavailable Dio De Leon MD Unavailable Dawson Smith MD Unavailable Encounter Details Date Type Department Care Team (Late st Contact Info) Description 02/23/2021 Lab Requisition [facility] Care DermPath Lab [address], [place] [phone] Steve Shetty MD [address] [facility] [address] [place] [address] Social History Tobacco Use Types Packs/Day Years Used Date Smoking Tobacco: Never Smokeless Tobacco: Never Alcohol Use Standard Drinks/Week Comments No 0 (1 standard drink = 0.6 oz pur e alcohol) Sex and Gender Information Value Date Recorded Sex Assigned at Not on file Legal Sex Male 1:09 PM JACK OF ALL TRADES Gender Identity Not on file Sexual Orientation Not on file documented as of this encounter Plan of Treatment Upcoming Encounters Date Type Department Care Team (Late st Contact Info) Description 04/01/2025 9:00 AM CDT Office Visit [facility] - GI [address], [place] [id number] Aislinn Dodge PA-C [address] [facility] 3L [place] [id number] 08/06/2025 12:45 PM JACK OF ALL TRADES Appointment [facility] [address] [facility], 2nd [place] [address] 08/06/2025 1:00 PM JACK OF ALL TRADES Office Visit [facility] - Hematology/Oncology [address] [place] [phone] Sergey Mcneill MD [address] [facility] OF HEMATOLOGY & [place] [address] documented as of this encounter Goals Goal Patient Goal Type Associated Problems Recent Progress Patient-Stated? Author Medication Management General On track( 025 8:59 AM JACK OF ALL TRADES) No Mary Mcclain, RN Note: Expected end [...] Priority Date/Time Associated Diagnosis Comments DERMATOPATHOLOGY Routine 02/22/2021 3:33 AM CDT documented in this encounter Results * DERMATOPATHOLOGY (02/22/2021 3:33 AM CDT) Case Report Dermatopathology Report Case: [id number] Authorizing Provider: Steve Shetty MD Collected: 02/22/2021 03:33 AM Ordering Location: [facility] DermPath Lab Received: 02/23/2021 06:29 AM Pathologist: Julieta Proctor MD Specimen: Skin, left medial malar 11:46 AM CDT DERMATOPATHOLOGY LABORATORY Final Diagnosis Specimen A. 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 Path# [id number]. 11:46 AM CDT DERMATOPATHOLOGY LABORATORY Gross Description Specimen A: Received is one formalin filled container labeled with the patient's name and designated left medial malar. The specimen consists of a shave biopsy measuring [id number]. Jar 0. 11:46 AM CDT DERMATOPATHOLOGY LABORATORY Microscopic Description Specimen A. SKIN, left medial malar: The epidermis shows parakeratosis, full thickness disorderly maturation of keratinocytes, mitoses at different levels, and dyskeratotic cells. The proliferation extends down adnexal structures. 11:46 AM CDT DERMATOPATHOLOGY LABORATORY Disclaimer An external and internal positive and negative controls are appropriate for the histochemical, immunohistochemical and immunofluorescence stain(s) in this case (if any), except where stated explicitly. The performance characteristics of the stain(s) cited in this report were developed and its performance characteristic determined by the Dermatopathology Laboratory at [facility], directed by Dr. Sylvie Mills. These tests need not be, and therefore are not, approved by the [place] Food and Drug Administration. The tests are used for clinical purposes. Billing Codes Specimen Charges Stain Charges 17923 1 11:46 AM CDT DERMATOPATHOLOGY LABORATORY Embedded Images 11:46 AM CDT DERMATOPATHOLOGY LABORATORY Pathology/Cytolo gy TISSUE SPECIMEN FROM SKIN / Unknown 02/22/2021 3:33 AM CDT 02/23/2021 6:29 AM CDT us Steve Shetty MD LAB - PATHOLOGY/CYTOLOGY ORDER LAVON Final Result DERMATOPATHOLOGY LABORATORY [facility] Department of Dermatology [facility] [address], 3rd [address] [phone] documented in this encounter Visit Diagnoses Not on filedocumented in this encounter Additional Health Concerns Infection Onset Date Last Indicated Resolved Time COVID-19 Under Investigation 12/06/2021 12/06/2021 12/06/2021 10:00 PM CDT documented as of this encounter Care Teams Cnc Cutting Operator Relationship Specialty Start Date End Date Elias Zaragoza MD PCP - General 01/16/18 Heather Shine, ROBERT Registered Nurse Hepatology 01/30/18 Sergey Mcneill MD [address] [place] [address] OF HEMATOLOGY & [place] [address] Hematology and Oncology 05/05/20 Dio De Leon MD [address] [place] [address] OF HEMATOLOGY & [place] [address] Endocrinology 02/08/22 Dawson Smith MD [facility]. [address] [address] Vascular Surgery 02/05/25 documented as of this encounter
--- OUTSIDE RECORDS SUMMARY | 2025-03-31 08:44 | XMS_ITS | Encounter Summary ---
Author Organization [facility] Address [address] [place] [address] Care Team Providers Care Tungsten Refiner Name Role Phone Unavailable Primary Care Provider Unavailabl e Encounter Details Date Type Department Care Team (Late st Contact Info) Description 08/24/2000 Outpatient Historical Division of Neurology 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
--- OUTSIDE RECORDS SUMMARY | 2025-03-31 08:44 | XMS_ITS | Encounter Summary ---
Author Organization [employer] Address [address] [place] [address] Care Team Providers Care Candles Pourer Name Role Phone Unavailable Primary Care Provider Unavailabl e Encounter Details Date Type Department Care Team (Late st Contact Info) Description 03/08/2007 Outpatient Historical Division of Neurology 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
--- OUTSIDE RECORDS SUMMARY | 2025-03-31 08:44 | XMS_ITS | Encounter Summary ---
Author Organization [employer] Address [address] [place] [address] Care Team Providers Care Dental Secretary Name Role Phone Unavailable Primary Care Provider Unavailabl e Encounter Details Date Type Department Care Team (Late st Contact Info) Description 04/26/2001 Outpatient Historical Division of Neurology 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
--- OUTSIDE RECORDS SUMMARY | 2025-03-31 08:44 | XMS_ITS | Encounter Summary ---
Author Organization [employer] Address [address] [place] [address] Care Team Providers Care Overnight Stocker Name Role Phone Unavailable Primary Care Provider Unavailabl e Encounter Details Date Type Department Care Team (Late st Contact Info) Description 06/16/2004 Outpatient Historical Division of Neurology 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
--- OUTSIDE RECORDS SUMMARY | 2025-03-31 08:44 | XMS_ITS | Encounter Summary ---
Author Organization [employer] Address [address] [place] [address] Care Team Providers Care Fitness Sales Consultant Name Role Phone Unavailable Primary Care Provider Unavailabl e Encounter Details Date Type Department Care Team (Late st Contact Info) Description 09/03/2003 Outpatient Historical Division of Neurology 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
--- OUTSIDE RECORDS SUMMARY | 2025-03-31 08:44 | XMS_ITS | Encounter Summary ---
Author Organization [facility] Address [address] [place] [address] Care Team Providers Care Plywood Factory Worker Name Role Phone Unavailable Primary Care Provider Unavailabl e Encounter Details Date Type Department Care Team (Late st Contact Info) Description 12/14/2004 Outpatient Historical Division of Neurology [address] [address] (Excluded Provider) [place] [address] [facility] [address] [place] [address] Social History Tobacco Use Types Packs/Day Years Used Date Smoking Tobacco: Never Assessed Sex and Gender Information Value Date Recorded Sex Assigned at Not on file Legal Sex Male 4:[address]AFETY ENGINEER Gender Identity Not on file Sexual Orientation Not on file documented as of this encounter Plan of Treatment Not on file documented as of this encounter Visit Diagnoses Not on filedocumented in this encounter
--- OUTSIDE RECORDS SUMMARY | 2025-03-31 08:44 | XMS_ITS | Encounter Summary ---
Author Organization [employer] Address [address] [place] [address] Care Team Providers Care Miller Supervisor Name Role Phone Unavailable Primary Care Provider Unavailabl e Encounter Details Date Type Department Care Team (Late st Contact Info) Description 12/17/2003 Outpatient Historical Division of Neurology 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
--- OUTSIDE RECORDS SUMMARY | 2025-03-31 08:44 | XMS_ITS | Encounter Summary ---
Author Organization [employer] Address [address] [place] [address] Care Team Providers Care Grazing Aide Name Role Phone Unavailable Primary Care Provider Unavailabl e Encounter Details Date Type Department Care Team (Late st Contact Info) Description 12/27/2000 Outpatient Historical Division of Neurology 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
--- OUTSIDE RECORDS SUMMARY | 2025-03-31 08:44 | XMS_ITS ---
Author Organization [facility] Address [address] [facility] [place] [address] Care Team Providers Care Liquified Natural Gas Technician Name Role Phone Elias Zaragoza MD Primary Care Provider [phone] Heather Shine RN Unavailable Unavailable Sergey Mcneill MD Unavailable [phone] Dio De Leon MD Unavailable Dawson Smith MD Unavailable Transplant Episode Liver Recipient [facility] ([place], [place]) - [facility] Organ Received: Liver Transplanted on 09/09/2011 Marked as Active Follow-up on 09/09/2011 Liver CoordinatorHeather Shine RN Phone: N/A Fax: N/A Email: N/A [place] Organ Diagnosis Organ Primary Contributory Liver Cirrhosis: Fatty Liver (FRANCO) Donor Information Organ ABO Source Meets Risk Criteria HLA Match Mismatches Cross Match Liver Transplanted A1 DBD No A: B: DR: Liver Donor Serology Results Anti-CMV CMV IgG: Positive EBV IgG EBV VCA IgM: Positive Anti-HBcAb HBC Total: Negative HBsAg HBsAg: Negative HBV DNA No results on file Anti-HCV HCV: Negative Anti-HIV I/II HIV-1: Negative Anti-HTLV I/II HTLV: Not Done RPR/VDRL RPR: Negative EBV IgM EBV VCA IgM: Positive HBsAb No results on file Toxoplasma No results on file SARS CoV-2 No results on file Care Team Name Role Phone Fax Email Heather Shine RN Liver Coordinator N/A N/A N/A Adryan Kerr MD Referring Physician [phone] N/A Historical Provider, Registered Nurse N/A N/A N/A Clark Jeffers MD Transplant Surgeon [phone] N/A Events Post-Transplant Pre-Transplant Admitted: 09/05/2011 Referred: 11/24/2010 Transplanted: 09/09/2011 Evaluation began: 1 Discharged: 09/15/2011 Center waitlisted: 1
--- OUTSIDE RECORDS SUMMARY | 2025-03-31 08:44 | XMS_ITS | Encounter Summary ---
Author Organization [employer] Address [address] [place] [address] Care Team Providers Care Yarn Hauler Name Role Phone Unavailable Primary Care Provider Unavailabl e Encounter Details Date Type Department Care Team (Late st Contact Info) Description 10/04/2005 Outpatient Historical Division of Neurology 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
--- OUTSIDE RECORDS SUMMARY | 2025-03-31 08:44 | XMS_ITS | Encounter Summary ---
Author Organization [employer] Address [address] [place] [address] Care Team Providers Care Auditing Manager Name Role Phone Unavailable Primary Care Provider Unavailabl e Encounter Details Date Type Department Care Team (Late st Contact Info) Description 04/23/2003 Outpatient Historical Division of Neurology 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
--- OUTSIDE RECORDS SUMMARY | 2025-03-31 08:44 | XMS_ITS | Clinical Summary ---
Author Organization [facility] Address [address] [place] [address] Care Team Providers Care Handle Bender Name Role Phone Elias Zaragoaz MD Primary Care Provider [phone] Heather Shine RN Unavailable Unavailable Sergey Mcneill MD Unavailable [phone] Dio De Leon MD Unavailable Dawson Smith MD Unavailable Source Comments [facility],non-owned Affiliates and Associated Physician Practices is amultiple site organization consisting of ambulatory clinics and hospital sitesin [place]. This disclosure is being madepursuant to the Care Everywhere program and may not contain all information available regarding this patient. Last updated 18.[facility] Allergies Active Allergy Reactions Criticality Noted Date Comments Dulaglutide Diarrhea 02/01/2024 Metformin Diarrhea 01/21/2024 Medications * This document contains information received from the source organization and may not represent a complete record from that organization. * Be aware that medications may not be up to date on this document. Alwaysverify current medications with the patient. insulin glargine (LANTUS) vial Inject 56 (fifty six) Units subcutaneously once daily 06/13/20 16 Active levothyroxine (SYNTHROID) 300 MCG tablet Take 1 (one) tablet by mouth once daily None on mon or monday06/13/20 16 Active sildenafil (VIAGRA) 100 MG tablet Take 1 (one) tablet by mouth as needed Active evolocumab (REPATHA) 140 MG/ML prefilled syringe Inject 140 (one hundred forty) mg subcutaneously every 14 days Active insulin lispro (HUMALOG;ADMELOG) 100 UNIT/ML pen Inject 46 (forty six) Units subcutaneously 3 times daily Active trimethoprim-poly myxin B (POLYTRIM) 34994-2.1 UNIT/ML-% ophthalmic solution 11/07/19 22 Active triamcinolone acetonide (KENALOG) 0.1 % cream 11/20/19 22 Active xmgux-4-ntfh ethyl esters (Lovaza) 1 g capsule Take 2 (two) capsules by mouth 2 times daily 360 capsule 3 11/25/19 23 Active furosemide (Lasix) 40 MG tabletIndications :Hyperlipidemia, unspecified hyperlipidemia type,Hypertension , unspecified type,History of liver transplant (HCC),Type 2 diabetes mellitus with stage 3 chronic kidney disease, unspecified whether intermediate insulin use, unspecified whether stage 3a or 3b CKD (HCC) Take 1 (one) tablet by mouth once daily as needed 15 tablet 5 01/03/20 23 Active Additional Information Patient not taking.Reported on 11/06/2024 allopurinol (Zyloprim) 300 MG tablet Take 1 (one) tablet by mouth once daily 90 tablet 5 01/03/20 23 Active vitamin D, cholecalciferol, 50 MCG (1999) tabletIndications :Hyperlipidemia, unspecified hyperlipidemia type,Hypertension , unspecified type,History of liver transplant (HCC),Type 2 diabetes mellitus with stage 3 chronic kidney disease, unspecified whether intermediate insulin use, unspecified whether stage 3a or 3b CKD (HCC) Take 1 (one) tablet by mouth once daily 90 tablet 5 01/12/20 23 Active pantoprazole EC (Protonix) 40 MG tabletIndications :Gastroesophageal Reflux Disease Take 1 (one) tablet by mouth once daily Reasons: Gastroesophageal Reflux Disease 90 tablet 3 02/23/20 23 Active fenofibrate micronized (Lofibra) 134 MG capsuleIndication s:Hyperlipidemia, unspecified hyperlipidemia type Take 1 (one) capsule by mouth once daily Take with largest meal of the day. 90 capsule 5 04/12/20 23 Active potassium citrate (Urocit K 10) 10 MEQ (1080 MG) tablet Take 1 (one) tablet by mouth 3 times daily with meals 180 tablet 4 04/12/20 23 Active tacrolimus (Prograf) 1 MG capsule Take 1 (one) capsule by mouth 2 times daily 180 capsule 3 05/15/20 23 Active fluticasone propionate (Flonase) 50 MCG/ACT nasal sprayIndications: Allergy, initial encounter SHAKE LIQUID AND USE 2 SPRAYS IN EACH NOSTRIL EVERY DAY 16 g 5 05/15/20 23 Active Additional Information Patient not taking.Reported on 11/06/2024 ezetimibe (Zetia) 10 MG tablet Take 1 (one) tablet by mouth once daily 10/25/19 23 Active [place]-3 Fatty Acids (fish oil) 1000 MG capsule Take 2 (two) capsules by mouth once daily 05/26/20 23 Active tirzepatide (Mounjaro) 10 MG/0.5ML injection Inject 1 Pen subcutaneously every 7 days 09/14/19 24 Active losartan (Cozaar) 25 MG tabletIndications :Hypertension, unspecified type,Acute renal failure superimposed on stage 3a chronic kidney disease, unspecified acute renal failure type (HCC) Take 1 (one) tablet by mouth at bedtime 90 tablet 3 02/27/20 24 Active carboxymethylcell ulose sodium PF 0.5 % ophthalmic solution Instill 2 (two) drops into both eyes 2 times daily 10/11/19 24 Active carboxymethylcell ulose (Refresh Liquigel) 1 % ophthalmic gel Instill into both eyes once daily as needed 10/11/19 24 Active loteprednol (Lotemax) 0.5 % ophthalmic suspension Instill 2 (two) drops into both eyes 2 times daily 10/11/19 24 Active olopatadine (Pataday) 0.1 % ophthalmic solution Instill 2 (two) drops into both eyes 2 times daily 09/28/19 24 Active Semaglutide (Ozempic, 0.25 or 0.5 MG/DOSE,) 2 MG/1.5ML SOPN Inject 2 mg subcutaneously every 7 days Active albuterol HFA (Proventil; Ventolin; Proair) 108 (90 Base) MCG/ACT inhaler Inhale 2 (two) puffs by mouth every 4 hours as needed 05/23/20 23 Active cyclobenzaprine (Flexeril) 5 MG tablet Take 1 (one) tablet by mouth 3 times daily as needed 01/10/20 24 Active fluorouracil (Efudex) 5 % cream Apply to affected area 2 times daily 03/18/20 24 Active BD Pen Needle Katarina 2nd Gen 32G X 4 MM MISC 1 Each 11/15/19 24 Active ipratropium (Atrovent) 0.06 % nasal spray [place] 2 (two) sprays into each nostril 3 times daily 10/11/19 24 Active montelukast (Singulair) 10 MG tablet Take 1 (one) tablet by mouth once daily 05/23/20 23 Active Tiotropium Alva-Olodatero l 2.5-2.5 MCG/ACT Inhale 2 puffs by mouth once daily as needed 08/10/19 24 Active furosemide (Lasix) 20 MG tablet Take 1 (one) tablet by mouth once daily 04/12/20 24 Active rosuvastatin (Crestor) 5 MG tablet Take 1 (one) tablet by mouth once daily Activ e cetirizine (ZyrTEC ALLERGY) 10 MG gel capsuleIndication s:Allergy, initial encounter Take 1 (one) capsule by mouth once daily Patient should follow with PCP for future refills or get OTC. 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) Take 1 (one) tablet by mouth every 12 hours 60 tablet 5 01/04/20 25 Active Active Problems Problem Noted Date Diagnosed Date Surgery, elective 02/05/2025 Chronic obstructive pulmonary disease, unspecifi ed 09/22/2023 09/22/2023 Poorly controlled diabetes mellitus 10/27/2020 Elevated liver enzymes 08/27/2020 CLL (chronic lymphoid leukemia) with failed gris ssion 04/13/2020 Lymphocytosis 02/19/2020 Obstructive sleep apnea 11/27/2019 Other chronic nonalcoholic liver disease 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 Continue atenolol. Overview: Overview: Good control. Continue atenolol. Good control. Good control. Continue atenolol. Good control. Continue atenolol. Bicipital tenosynovitis 01/30/2018 Overview (01/30/2018): heat, rest, nsaids. F/U prn Brachial neuritis 01/30/2018 Overview (01/30/2018): will order a C-spine MRI and refer to PT. May refer to neurosurgeon or Pain management pending MRI results. Diabetes mellitus 01/30/2018 Overview (09/16/2022): Overview: On low dose Lantus. Neoplasm of uncertain behavior of skin 8 Hyperlipidemia 01/30/2018 Overview (01/30/2018): On statin. FRANCO (nonalcoholic steatohepatitis) 01/30/2018 Recurrent nephrolithiasis 01/30/2018 Overview (01/11/2023): S/P ESWL 2005 Cystoureterroscopy removal of stones X2 12/2011 Cystoureterroscopy removal of 1 Cm stone. Stone analysis in 01/2012: Ca Oxalate monohydrate 94%, Ca Phosphate hydroxy 3%, Protein 3% Risk Factors: High Uric ac, Oxalate, Na, slight low Citrate Positive Family Hx of stone: Mom, daughter. CT Scan in 03/2014: Nonobstructing 5 mm left inferior pole renal calculus. Bilateral renal cystic lesions, increased in size. Evaluation for septation and nodularity is limited by lack of intravenous contrast. 24 hrs urine: UV 3.25 L, pH 6.2, Na 451, Ca 679, Citrate 1768, Mg 264, Oxalate 65.8, Uric ac 923, Phos 1950, Sulfate 43, K 196, UCr 4518, Protein 228 mg 12/2014 24 hrs urine: UV 3.00 L, pH 5.9, Na 504, Ca 480, Citrate 1524, Mg 186, Oxalate 66, Uric ac 1005, Phos 2340, Sulfate 35, K 120, UCr 4230, Protein [address] Scan in 11/2019: Nonobstructing 0.7 cm left lower pole renal calculus, minimallymincreased in size. No hydronephrosis. Bilateral renal cysts, slightly increased in size. CT Scan in 10/2022: 1.2 Cm Lt kidney lower pole stone, not obstructing. Rt kidney cyst 8.9 Cm. Squamous cell carcinoma of skin 01/30/2018 Morbid obesity 01/09/2017 Tubular adenoma 11/26/2014 Avascular necrosis of talus 06/09/2014 Obesity 05/28/2014 Diabetes mellitus, type 2 03/01/2012 Overview (10/27/2020): Overview: Overview: Overview: On low dose Lantus. Stopped glucovance. Increased lantus insulin to 32 units dailly, If am glucose persistently > 120 , increase insulin by 7 units weekly until reach goal or below 65. Rx for solostar pin given. Liver transplant recipient in 08/201108/24/2011 Overview (09/16/2022): H/O FRANCO cirrhosis, S/P OTL-TXP 08/2011 CT without contrast 03/2014: Diffuse hepatic steatosis. Nonspecific mesenteric/retroperitoneal lymphadenopathy. Bilateral common iliac artery aneurysms. Unchanged size of a body/tail cystic pancreatic lesion. H/O FRANCO cirrhosis, S/P OTL-TXP 08/2011 CT without contrast 03/2014: Diffuse hepatic steatosis. Nonspecific mesenteric/retroperitoneal lymphadenopathy. Bilateral common iliac artery aneurysms. Unchanged size of a body/tail cystic pancreatic lesion. Overview: Overview: H/O FRANCO cirrhosis, S/P OTL-TXP 08/2011 CT without contrast 03/2014: Diffuse hepatic steatosis. Nonspecific mesenteric/retroperitoneal lymphadenopathy. Bilateral common iliac artery aneurysms. Unchanged size of a body/tail cystic pancreatic lesion. H/O FRANCO cirrhosis, S/P OTL-TXP 08/2011 CT without contrast 03/2014: Diffuse hepatic steatosis. Nonspecific mesenteric/retroperitoneal lymphadenopathy. Bilateral common iliac artery aneurysms. Unchanged size of a body/tail cystic pancreatic lesion. H/O FRANCO cirrhosis, S/P OTL-TXP 08/2011 CT without contrast 03/2014: Diffuse hepatic steatosis. Nonspecific mesenteric/retroperitoneal lymphadenopathy. Bilateral common iliac artery aneurysms. Unchanged size of a body/tail cystic pancreatic lesion. Overview: Overview: H/O FRANCO cirrhosis, S/P OTL-TXP 08/2011 CT without contrast 03/2014: Diffuse hepatic steatosis. Nonspecific mesenteric/retroperitoneal lymphadenopathy. Bilateral common iliac artery aneurysms. Unchanged size of a body/tail cystic pancreatic lesion. H/O FRANCO cirrhosis, S/P OTL-TXP 08/2011 CT without contrast 03/2014: Diffuse hepatic steatosis. Nonspecific mesenteric/retroperitoneal lymphadenopathy. Bilateral common iliac artery aneurysms. Unchanged size of a body/tail cystic pancreatic lesion. H/O FRANCO cirrhosis, S/P OTL-TXP 08/2011 CT without contrast 03/2014: Diffuse hepatic steatosis. Nonspecific mesenteric/retroperitoneal lymphadenopathy. Bilateral common iliac artery aneurysms. Unchanged size of a body/tail cystic pancreatic lesion. H/O FRANCO cirrhosis, S/P OTL-TXP 08/2011 CT without contrast 03/2014: Diffuse hepatic steatosis. Nonspecific mesenteric/retroperitoneal lymphadenopathy. Bilateral common iliac artery aneurysms. Unchanged size of a body/tail cystic pancreatic lesion. Overview: Overview: H/O FRANCO cirrhosis, S/P OTL-TXP 08/2011 CT without contrast 03/2014: Diffuse hepatic steatosis. Nonspecific mesenteric/retroperitoneal lymphadenopathy. Bilateral common iliac artery aneurysms. Unchanged size of a body/tail cystic pancreatic lesion. H/O FRANCO cirrhosis, S/P OTL-TXP 08/2011 CT without contrast 03/2014: Diffuse hepatic steatosis. Nonspecific mesenteric/retroperitoneal lymphadenopathy. Bilateral common iliac artery aneurysms. Unchanged size of a body/tail cystic pancreatic lesion. Resolved Problems Problem Noted Date Diagnosed Date Resolved Date Acute pharyngitis due to oth er specified organisms 02/02/2022 02/02/2022 Chronic kidney disease-yarn examiner al and bone disorder 01/30/2018 01/29/2019 Liver replaced by transplant 01/30/2018 01/29/2019 Encounters Date Type Department Care Team Description 02/21/2025 Orders Only [facility] - GI [address] [facility] [place] [address] Aislinn Dodge PA-C Liver transplant recipient in 08/2011; Encounter for long-term (current) use of medications; Class 3 severe obesity due to excess calories with body mass index (BMI) of 40.0 to 44.9 in adult, unspecified whether serious comorbidity present (HCC); Elevated liver enzymes; 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) 02/07/2025 Orders Only [facility] - GI [address] [place] [phone] Aislinn Dodge PA-C Liver transplant recipient in 08/2011; Encounter for long-term (current) use of medications; Class 3 severe obesity due to excess calories with body mass index (BMI) of 40.0 to 44.9 in adult, unspecified whether serious comorbidity present (HCC); Elevated liver enzymes; 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) 02/05/2025 2:00 PM CDT Office Visit [facility] - Hematology/Oncology [facility] [place] [address] Sergey Mcneill MD 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) (Primary Dx); Surgery, elective 02/05/2025 1:10 PM CDT - 02/05/2025 11:59 PM CDT Hospital Encounter [facility] [address] [place] [address], [address] [place] [address] Discharge Disposition: Home or Self Care 02/05/2025 Travel 01/24/2025 Orders Only [facility] - GI [address] [place] [phone] Aislinn Dodge PA-C Liver transplant recipient in 08/2011; Encounter for long-term (current) use of medications; Class 3 severe obesity due to excess calories with body mass index (BMI) of 40.0 to 44.9 in adult, unspecified whether serious comorbidity present (HCC); Elevated liver enzymes; 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) 01/10/2025 Orders Only [facility] - GI [address] [place] [phone] Aislinn Dodge PA-C Liver transplant recipient in 08/2011; Encounter for long-term (current) use of medications; Class 3 severe obesity due to excess calories with body mass index (BMI) of 40.0 to 44.9 in adult, unspecified whether serious comorbidity present (HCC); Elevated liver enzymes; 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 (AF LURIA, FLUZONE TRIVALENT; 6MO+) (IIV3) 07/12/2017,08/03/2012 Covid Moderna primary monova lent 12+ yr 0.5mL 05/24/2023,04/14/2021,10/02/2020 FLU VACCINE QUAD IIV4 PF ID 05/27/2019 HEP B VACCINE, ADULT 3 DOSE 08/18/2008, 8,12/07/2007 INFLUENZA VACCINE 05/23/2023, 8,05/02/2017,2015,06/24/2015,05/15/2014 INFLUENZA VACCINE, ADJUVANTE D, QUADR. (FLUAD QUADRIVALENT; 65Y+) (AIIV4) 04/28/2021 INFLUENZA VACCINE, CELL CULT URE, QUADR. (FLUCELVAX QUADRIVALENT; 6MO+) (CCIIV4) 07/03/2017 INFLUENZA VACCINE, HIGH-DOSE , QUADR. 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 Gender Identity Not on file Sexual Orientation Not on file Last Filed Vital Signs Vital Sign Reading Time Taken Comments Blood Pressure 128/74 02/05/2025 1:48 PM CDT Pulse 75 02/05/2025 1:48 PM CDT Temperature 36.8 C (98.3 F) 02/05/2025 1:48 PM CDT Respiratory Rate 18 02/05/2025 1:48 PM CDT Oxygen Saturation 97% 02/05/2025 1:48 PM CDT Inhaled Oxygen Concentration - - Weight 142.8 kg (314 lb 12.8 oz) 02/05/2025 1:48 PM CDT Height 182.9 cm (6') 09/24/2024 9:00 AM 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 Body Mass Index 42.69 09/24/2024 9:00 AM 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 Plan of Treatment Upcoming Encounters Date Type Department Care Team (Late st Contact Info) Description 04/01/2025 9:00 AM CDT Office Visit [facility] - GI [address] [facility] [place] [address] Aislinn Dodge PA-C [address] [place] [address] [facility] [place] [address] 08/06/2025 12:45 PM 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 Appointment [facility] [address] [place] [address] 08/06/2025 1:00 PM 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 Office Visit [facility] - Hematology/Oncology [address] [place] [phone] Sergey Mcneill MD [address] [facility] [place] [address] Health Maintenance Due Date Last Done Comments COLOGUARD (AGES 45-75) - COLON CA SCREENING 1953 CT COLONOGRAPHY - COLON CA SCREENING 1955 FIT - COLON CA SCREENING 1953 FLEX SIG - COLON CA SCREENING 1955 MEDICARE AWV 12 MONTHS 1953 HEPATITIS C SCREENING 03/10/1971 DTAP/TDAP/TD VACCINES (1 - Tdap) 1972 ZOSTER VACCINE (1 of 2) 1972 DIABETES-FOOT EXAM WITH MONOFILAMENT 01/30/2018 PNEUMOCOCCAL VACCINE 50+ (2 of 2 - PPSV23, PCV20, or PCV21) 08/07/2018 06/12/2018 DIABETES RETINOPATHY SCREENING 12/07/2018 12/07/2016, 10/16/2015, 01/20/2015, Additional history exists DEPRESSION SCREENING 07/24/2024 COVID-19 VACCINE ( season) 2025 05/24/2023, 02/28/2022, 04/14/2021, Additional history exists INFLUENZA VACCINE (#1) 2025 , 05/23/2023, 05/20/2021, Additional history exists DIABETES-HGB A1C 07/24/2025 01/21/2025, , 2024, Additional history exists DIABETES - URINE PROTEIN SCREENING 10/30/2025 10/30/2024, 02/20/2024, 09/08/2023, Additional history exists DIABETES-SERUM CREATININE 02/05/20262024, 01/21/2025, 12/06/2024, Additional history exists COLON MONITORING 11/19/2033 11/20/2023, , 09/28/2020, Additional history exists COLONOSCOPY - COLON CA SCREENING 11/19/2033 11/20/2023, 11/20/2023, 09/28/2020, Additional history exists Colorectal Cancer Screening 11/19/2033 HEPATITIS B VACCINE Completed 08/18/2008, 02/20/2008, 12/07/2007 Respiratory Syncytial Virus (RSV) Vaccine Pt: or over 60 yrs Completed 05/24/2023 HIB VACCINE Aged Out No longer eligi ble based on patient's age to complete this topic HPV VACCINE Aged Out No longer eligi ble based on patient's age to complete this topic MENINGOCOCCAL (Group B) VACCINE SHARED DECISION-MAKING Aged Out No longer eligible based on patient's age to complete this topic MENINGOCOCCAL GROUPS A/C/Y/W VACCINE Aged Out No longer eligible based on patient's age to complete this topic Goals Goal Patient Goal Type Associated Problems Recent Progress Patient-Stated? Author Medication Management General On track( 025 8:59 AM 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) No Mary Mcclain, RN Note: Expected end [...] assess your risk for falls/injury each visit Medication Management General No Stephy Coats, ROBERT Note: Expected end date: ongoing Interventions: Take all medications as prescribed Let your doctor know right away about any changes in your medications Make sure to request a refill of your medication at least one week prior to your last dose Procedures Procedure Name Priority Date/Time Associated Diagnosis Comments COMPREHENSIVE METABOLIC PANEL Routine 02/05/2025 1:10 PM CDT 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) LDH BLOOD STAT 02/05/2025 1:10 PM CDT 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) CBC W AUTO DIFFERENTIAL Routine 02/05/2025 1:10 PM CDT 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) ENDOSCOPY, COLON, SCREENING Routine 11/20/2023 7:40 AM CDT PROTEIN CREATININE RATIO URINE RANDOM PNL 06/13/2022 9:29 AM 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 HEMOGLOBIN A1C Routine 02/12/2015 10:59 AM CDT from Last 3 Months or Most Recently Relevant to Health Maintenance Results * (ABNORMAL) CBC WITH DIFFERENTIAL (02/05/2025 1:10 PM CDT) WBC 9.3 4.0 - 10.7 x10E9/L 02/05/2025 1:50 PM [facility] RBC Count 5.53 4.30 - 5.80 x10E12/L 02/05/2025 1:50 PM [facility] Hemoglobin 15.4 13.3 - 17.5 g/dL 02/05/2025 1:50 PM [facility] Hematocrit 50.8 38.7 - 51.1 % 02/05/2025 1:50 PM [facility] MCV 91.9 80.0 - 98.0 fL 02/05/2025 1:50 PM T [facility] MCH 27.8 26.7 - 33.6 pg 02/05/2025 1:50 PM [facility] MCHC 30.3(L) 31.7 - 36.3 g/dL 02/05/2025 1:50 PM [facility] RDW-CV 14.2 11.3 - 14.8 % 02/05/2025 1:50 PM [facility] Platelet Count 166 150 - 420 x10E9/L 02/05/2025 1:50 PM [facility] MPV 11.5(H) 7.8 - 11.4 fL 02/05/2025 1:50 PM [facility] Neutrophil % 61.9 41.0 - 74.0 % 02/05/2025 1:50 PM [facility] Lymphocyte % 31.4 17.0 - 47.0 % 02/05/2025 1:50 PM CDT [facility] Monocyte % 5.4 3.0 - 11.0 % 02/05/2025 1:50 PM CDT [facility] Eosinophil % 0.5 0.0 - 7.0 % 02/05/2025 1:50 PM CDT [facility] Basophil % 0.3 0.0 - 1.6 % 02/05/2025 1:50 PM CDT [facility] Immature Granulocytes % 0.5 0.0 - 1.0 % 02/05/2025 1:50 PM CDT [facility] Neutrophil Absolute 5.73 1.60 - 7.50 x10E9/L 02/05/2025 1:50 PM CDT [facility] Lymphocyte Absolute 2.91 1.00 - 4.40 x10E9/L 02/05/2025 1:50 PM CDT [facility] Monocyte Absolute 0.50 0.15 - 1.00 x10E9/L 02/05/2025 1:50 PM CDT [facility] Eosinophil Absolute 0.05 0.00 - 0.60 x10E9/L 02/05/2025 1:50 PM CDT [facility] Basophil Absolute 0.03 0.00 - 0.13 x10E9/L 02/05/2025 1:50 PM [facility] Blood BLOOD SPECIMEN / Unknown Lab Venipuncture / Unknown 02/05/2025 1:10 PM CDT 02/05/2025 1:43 PM CDT [facility] Saeed Mcneill MD LAB - HEMATOLOGY ORDERABLES Final Result [facility] [address] [place] [address], [facility] [phone] * (ABNORMAL) COMPREHENSIVE METABOLIC PANEL (02/05/2025 1:10 PM CDT) BUN 27(H) 7 - 26 mg/dL 02/05/2025 2:15 PM CDT [facility] Creatinine 1.69(H) 0.71 - 1.16 mg/dL 02/05/2025 2:15 PM [facility] Sodium 141 136 - 145 mmol/L 02/05/2025 2:15 PM [facility] Potassium 4.6(H) 3.5 - 4.5 mmol/L 02/05/2025 2:15 PM [facility] Chloride 109(H) 98 - 107 mmol/L 02/05/2025 2:15 PM [facility] CO2 25 22 - 29 mmol/L 02/05/2025 2:15 PM [facility] Glucose 107(H) 70 - 99 mg/dL 02/05/2025 2:15 PM [facility] Calcium 9.1 8.4 - 10.2 mg/dL 02/05/2025 2:15 PM [facility] Protein Total 6.7 6.0 - 8.3 g/dL 02/05/2025 2:15 PM [facility] Albumin 4.4 3.4 - 5.0 g/dL 02/05/2025 2:15 PM [facility] Bilirubin Total 0.7 0.2 - 1.2 mg/dL 02/05/2025 2:15 PM [facility] Alkaline Phosphatase 60 40 - 150 U/L 02/05/2025 2:15 PM [facility] ALT 18 5 - 55 U/L 02/05/2025 2:15 PM [facility] AST 14 5 - 34 U/L 02/05/2025 2:15 PM [facility] Anion Gap 7 6 - 16 02/05/2025 2:15 PM [facility] BUN/Creatinine Ratio 16 7 - 23 02/05/2025 2:15 PM [facility] Osmolality Calculated 298(H) 275 - 295 mOsm/kg 02/05/2025 2:15 PM [facility] Albumin/Globulin Ratio 1.9 1.1 - 2.3 02/05/2025 2:15 PM [facility] eGFR by CKD-EPI 43(L) >=90 mL/min/1.7 3 m2 02/05/2025 2:15 PM [facility] Comment:Estimated Glomerular Filtration Rate (eGFR) calculated using the CKD-EPI Creatinine Equation (2020), per the National Kidney Foundation and [place] Society of Nephrology recommendations. Blood BLOOD SPECIMEN / Unknown Lab Venipuncture / Unknown 02/05/2025 1:10 PM CDT 02/05/2025 1:43 PM CDT Sergey Mcneill MD LAB - CHEMISTRY ORDERABLES F inal Result Performing Organization Address City/[facility]/ZIP Co de Phone Number [address] [address], [facility] [phone] * [facility] BLOOD (02/05/2025 1:10 PM CDT) [facility] Total 147 125 - 243 Units/L 02/05/2025 2:15 PM CDT [facility] Blood BLOOD SPECIMEN / Unknown Lab Venipuncture / Unknown 02/05/2025 1:10 PM CDT 02/05/2025 1:43 PM CDT [facility] Saeed Mcneill MD LAB - CHEMISTRY ORDERABLES F inal Result Performing Organization Address City/[facility]/ZIP Co de Phone Number [address] [address], [facility] [phone] * ENDOSCOPY, COLON, SCREENING (11/20/2023 7:40 AM CDT) Report Endoscopy POC Endoscopy Department Report _ Patient Name: Opal Frey Jr Neeta Procedure Date: 11/20/2023 7:40 AM Date of : 1955 Classification: Outpatient Gender: Male Ethnicity: Not or Race: White _ Providers: Adryan Kerr MD Referring MD: Elias Zaragoza (Referring MD) Procedure: Colonoscopy Indications: High risk colon cancer surveillance: Personal history of colonic polyps Medications: Monitored Anesthesia Care Description of Procedure: Pre-Anesthesia Assessment: - Prior to the procedure, a History and Physical was performed, and patient medications and allergies were reviewed. The patient's tolerance of previous anesthesia was also reviewed. The risks and benefits of the procedure and the sedation options and risks were discussed with the patient. All questions were answered, and informed consent was obtained. Prior Anticoagulants: The patient has taken no anticoagulant or antiplatelet agents. ASA Grade Assessment: II - A patient with mild systemic disease. After reviewing the risks and benefits, the patient was deemed in satisfactory condition to undergo the procedure. After I obtained informed consent, the scope was passed under direct vision. Throughout the procedure, the patient's blood pressure, pulse, and oxygen saturations were monitored continuously. The Colonoscope was introduced through the anus and advanced to the cecum, identified by the ileocecal valve. The colonoscopy was performed without difficulty. The patient tolerated the procedure well. The quality of the bowel preparation was adequate to identify polyps greater than 5 mm in size. The ileocecal valve and the rectum were photographed. Findings: The perianal and digital rectal examinations were normal. A 1 mm polyp was found in the ascending colon. The polyp was sessile. The polyp was removed with a jumbo cold forceps. Resection and retrieval were complete. Verification of patient identification for the specimen was done by the nurse using the patient's name and date. Estimated blood loss was minimal. Four sessile polyps were found in the transverse colon and ascending colon. The polyps were 3 to 8 mm in size. These polyps were removed with a cold snare. Resection and retrieval were complete. Verification of patient identification for the specimen was done by the nurse using the patient's name and date. Estimated blood loss was minimal. Many small and large-mouthed diverticula were found in the sigmoid colon and descending colon. The retroflexed view of the distal rectum and anal verge was normal and showed no anal or rectal abnormalities. Estimated Blood Loss: Estimated blood loss was minimal. Complications: No immediate complications. Impression: - Prep had some limitations AO not well seen due to hard stool and scatter small solid stool balls. - One 1 mm polyp in the ascending colon, removed with a jumbo cold forceps. Resected and retrieved. - Four 3 to 8 mm polyps in the transverse colon and in the ascending colon, removed with a cold snare. Resected and retrieved. - Diverticulosis in the sigmoid colon and in the descending colon. - The distal rectum and anal verge are normal on retroflexion view. Recommendation: - Patient has a contact number available for emergencies. The signs and symptoms of potential delayed complications were discussed with the patient. Return to normal activities tomorrow. Written discharge instructions were provided to the patient. - Resume previous diet. - Continue present medications. - Await pathology results. - Repeat colonoscopy in 2 - 5 years for surveillance based on pathology results and limitations of the prep. - Use 2 day prep for repeat colonoiscopies - Return to my office as previously scheduled. Attending Participation: I personally performed the entire procedure. Procedure Code(s): --- Professional --- 68936, Colonoscopy, flexible; with removal of tumor(s), polyp(s), or other lesion(s) by snare technique 13514, 59, Colonoscopy, flexible; with biopsy, single or multiple Diagnosis Code(s): --- Professional --- Z86.010, Personal history of colonic polyps D12.2, Benign neoplasm of ascending colon D12.3, Benign neoplasm of transverse colon (hepatic flexure or splenic flexure) K57.30, Diverticulosis of large intestine without perforation or abscess without bleeding CPT copyright 2021 [place] [employer]. All rights reserved. The codes documented in this report are preliminary and upon manager electrical review may be revised to meet current compliance requirements. Adryan Kerr MD 11/20/2023 9:01:25 AM This report has been signed electronically. Note Initiated On: 11/20/2023 7:40 AM Number of Addenda: [id number] [place] [address] PROVATION 11/20/2023 7:40 AM CDT Adryan Kerr MD GI PROCEDURE ORDERABLES Edited Result - Final [facility] PROVATION * (ABNORMAL) PROTEIN CREATININE RATIO URINE RANDOM PNL (06/13/2022 9:29 AM 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) Creatinine Urine 118 20 - 320 mg/dL [facility] Protein/Creatini ne Ratio 153(H) 25 - 148 mg/g creat [facility] Protein/Creatini ne Ratio 0.153(H) 0.025 - 0.148 mg/mg creat [facility] Protein Random Urine 18 5 - 25 mg/dL [facility] Comment: REPORT COMMENT: COLLECTION KIT GIVEN TO PATIENT. PATIENT ADVISED TO RETURN. Test Performed at: [facility] [id number] OPAL GARRIDO DO,MPH 06/13/2022 9:29 AM 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 06/13/2022 9:31 AM 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 Jayne Galarza MD LAB - URINE CHEMISTRY ORDERABLE S Final Result Performing Organization Address City/[facility]/ZIP Co de Phone Number [facility] [address] [place] [address] * (ABNORMAL) HEMOGLOBIN A1C (02/12/2015 10:59 AM CDT) Hemoglobin A1c 6.7(H) <5.7 % of total Hgb [facility] ([facility]) Comment: According to ADA guidelines, hemoglobin A1c <7.0% represents optimal control in non- diabetic patients. Different metrics may apply to specific patient populations. Standards of Medical Care in Diabetes-2013. Diabetes Care. 2013;36:s11-s66 For the purpose of screening for the presence of diabetes <5.7% Consistent with the absence of diabetes 5.7-6.4% Consistent with increased risk for diabetes (prediabetes) >or=6.5% Consistent with diabetes This assay result is consistent with diabetes mellitus. Currently, no consensus exists for use of hemoglobin A1c for diagnosis of diabetes for children. REPORT COMMENT: FASTING:YES Test Performed at: [facility] [id number] OPAL GARRIDO DO,MPH Blood specimen (specimen) BLOOD SPECIMEN / Unknown 02/12/2015 10:59 AM CDT 02/12/2015 11:00 AM CDT Jayne Galarza MD LAB - CHEMISTRY ORDERABLES Crys pereira Result [facility] ([facility]) [id number] from Last 3 Months or Most Recently Relevant to Health Maintenance Insurance MEDICARE MEDICARE Care Teams Handle Bender Relationship Specialty Start Date End Date Elias Zaragoza MD PCP - General 01/16/18 Heather Shine, ROBERT Registered Nurse Hepatology 01/30/18 Sergey Mcneill MD [address] DIV OF HEMATOLOGY & [place] [address] Hematology and Oncology 05/05/20 Dio De Leon MD [address] DIV OF HEMATOLOGY & [place] [address] Endocrinology 02/08/22 Dawson Smith MD [address] [address] Vascular Surgery 02/05/25
--- OUTSIDE RECORDS SUMMARY | 2025-03-31 08:44 | XMS_ITS | Encounter Summary ---
Author Organization [facility] Address [address] [place] [address] Care Team Providers Care Unclaimed Property Manager Name Role Phone Elias Zaragoza MD Primary Care Provider Heather Shine RN Unavailable Unavailable Sergey Mcneill MD Unavailable Dio De Leon MD Unavailable Dawson Smith MD Unavailable Encounter Details Date Type Department Care Team (Late st Contact Info) Description 06/19/2023 Lab Requisition [facility] - DermPath Lab [address] [facility] [place] [id number] Steve Shetty MD [address] [facility] [place] [address] Social History Tobacco Use Types Packs/Day [...] on file Legal Sex Male 1:09 PM HUMAN RESOURCES HR GENERALIST Gender Identity Not on file Sexual Orientation [...] [facility] [address] [facility] [place] [address] Aislinn Dodge PA-C [address] [place] [address] [address] [place] [address] 08/06/2025 12:45 PM HUMAN RESOURCES HR GENERALIST Appointment [facility] [address] [place] [address] 2nd [place] [address] 08/06/2025 1:00 PM HUMAN RESOURCES HR GENERALIST Office Visit [facility] - Hematology/Oncology [address] [place] [phone] Sergey Mcneill MD [address] [facility] [address] HEMATOLOGY [place] [address] documented as of this encounter Goals Goal Patient Goal Type Associated Problems Recent Progress Patient-Stated? Author Medication Management General On track( 025 8:59 AM HUMAN RESOURCES HR GENERALIST) No Mary Mcclain, RN Note: Expected end [...] Priority Date/Time Associated Diagnosis Comments DERMATOPATHOLOGY Routine 06/14/2023 12:0 0 AM HUMAN RESOURCES HR GENERALIST documented in this encounter Results * DERMATOPATHOLOGY (06/14/2023 12:00 AM HUMAN RESOURCES HR GENERALIST) Case Report Dermatopathology Report Case: [id number] Authorizing Provider: Steve Shetty MD Collected: 06/14/2023 12:00 AM Ordering Location: [facility] DermPath Lab Received: 06/19/2023 04:49 PM Pathologist: Julieta Proctor MD Specimen: Skin, left anterior neck 1:47 PM HUMAN RESOURCES HR GENERALIST DERMATOPATHOLOGY LABORATORY Final Diagnosis Specimen A. SKIN, left anterior neck: HYPERPLASTIC (HYPERTROPHIC) ACTINIC KERATOSIS, WITH ADNEXAL EXTENSION; EXTENDING TO THE BASE OF THE SPECIMEN (L57.0) (see microscopic description and comment) 3 1:47 PM [facility] DERMATOPATHOLOGY LABORATORY at [address]7 HUMAN RESOURCES HR GENERALIST Clinical History [facility] vs [facility] Path# [id number] 3 1:47 PM [facility] DERMATOPATHOLOGY LABORATORY Gross Description Specimen A: Received is one formalin filled container labeled with the patient's name and designated left anterior neck. The specimen consists of a (2) pieces shave biopsy measuring 1x1x1, 4x7x1 mm. Jar 0. 3 1:47 PM [facility] DERMATOPATHOLOGY LABORATORY Microscopic Description Specimen A. SKIN, left anterior neck: There is hyperkeratosis alternating with parakeratosis. There is epidermal hyperplasia with disorderly maturation of keratinocytes with nuclear pleomorphism confined to the lower half of the epidermis. The proliferation extends down adnexal structures. This process extends to the base of the specimen. COMMENT: A squamous cell carcinoma cannot be ruled out. 3 1:47 PM [facility] DERMATOPATHOLOGY LABORATORY Disclaimer An external and internal positive and negative controls are appropriate for the histochemical, immunohistochemical and immunofluorescence stain(s) in this case (if any), except where stated explicitly. The performance characteristics of the stain(s) cited in this report were developed and its performance characteristic determined by the Dermatopathology Laboratory at [facility], directed by Dr. Sylvie Mills. These tests need not be, and therefore are not, approved by the [place] Food and Drug Administration. The tests are used for clinical purposes. Billing Codes Specimen Charges Stain Charges 38305 1 3 1:47 PM [facility] DERMATOPATHOLOGY LABORATORY Embedded Images 3 1:47 PM [facility] DERMATOPATHOLOGY LABORATORY Pathology/Cytolog y TISSUE SPECIMEN FROM SKIN / Unknown 06/14/2023 06/19/2023 4:49 PM HUMAN RESOURCES HR GENERALIST us Steve Shetty MD LAB - PATHOLOGY/CYTOLOGY ORDER LAVON Final Result DERMATOPATHOLOGY LABORATORY [facility] - Department of Dermatology [facility] [address] [facility] 3rd Floor [place], [place] [address] [place] [address] documented in this encounter Visit Diagnoses Not on filedocumented in this encounter Care Teams Unclaimed Property Manager Relationship Specialty Start Date End Date Elias Zaragoza MD PCP - General 01/16/18 Heather Shine, ROBERT Registered Nurse Hepatology 01/30/18 Sergey Mcneill MD [address] [place] [address] OF HEMATOLOGY [place] [address] Hematology and Oncology 05/05/20 Dio De Leon MD [address] [place] [address] OF HEMATOLOGY [place] [address] Endocrinology 02/08/22 Dawson Smith MD [facility]. [address] [address] Vascular Surgery 02/05/25 documented as of this encounter
--- OUTSIDE RECORDS SUMMARY | 2025-03-31 08:44 | XMS_ITS ---
Author Organization [facility] Address [address] [place] [address] Care Team Providers Care Nurse Instructor Name Role Phone Elias Zaragoza MD Primary Care Provider [phone] Heather Shine RN Unavailable Unavailable Sergey Mcneill MD Unavailable [phone] Dio De Leon MD Unavailable Dawson Smith MD Unavailable Active Problems * This document contains information received from the source organization and may not represent a complete record from that organization. 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 Current Treatment and Therapy Plans No current plan information found. Past Treatment and Therapy Plans ONCOLOGY TREATMENT Plan Name Start Date Discontinue Date Treatment Medications Discontinue Reason Plan Provider Cycles CLL (ACALAB RUTINIB OBINUTU ZUMAB) Q28 DAYS 2 05/06/2022 acalabrutinib (Calquence)obinutuzumab (Gazyva)obinutuzumab (Gazyva) 100 mg IVPBobinutuzumab (Gazyva) 1000 mg infusionobinutuzumab (Gazyva) 900 mg IVPB Therapy Complete Sergey Mcneill MD 6 of 7 cycles started Lifetime Dose Tracking * Chemical Lifetime Dose Automatic Entry Manual Entr y Dose Length Product 4,338.8 mGy-cm 4,338.8 mGy-cm 0 mG y-cm Resolved Problems Problem Noted Date Diagnosed Date Resolved Date Acute pharyngitis due to oth er specified organisms 02/02/2022 02/02/2022 Chronic kidney disease-credit union field examiner al and bone disorder 01/30/2018 01/29/2019 Liver replaced by transplant 01/30/2018 01/29/2019
--- OUTSIDE RECORDS SUMMARY | 2025-03-31 08:44 | XMS_ITS | Encounter Summary ---
Author Organization [facility] Address [address] [place] [address] Care Team Providers Care Cryptographic Vulnerability Analyst Name Role Phone Unavailable Primary Care Provider Unavailabl e Encounter Details Date Type Department Care Team (Late st Contact Info) Description 01/05/2006 Outpatient Historical Division of Neurology [address] [address] (Excluded Provider) [place] [address] [address] [facility] [address] [place] [address] Social History Tobacco Use Types Packs/Day Years Used Date Smoking Tobacco: Never Assessed Sex and Gender Information Value Date Recorded Sex Assigned at Not on file Legal Sex Male 4:04 AM OFFICE DIRECTOR Gender Identity Not on file Sexual Orientation Not on file documented as of this encounter Plan of Treatment Not on file documented as of this encounter Visit Diagnoses Not on filedocumented in this encounter
--- OUTSIDE RECORDS SUMMARY | 2025-03-31 08:44 | XMS_ITS | Encounter Summary ---
Author Organization [facility] Address [address] [place] [address] Care Team Providers Care Director Broadcast Name Role Phone Unavailable Primary Care Provider Unavailabl e Encounter Details Date Type Department Care Team (Late st Contact Info) Description 06/28/2005 Outpatient Historical Division of Neurology [address] [address] (Excluded Provider) [place] [address] [facility] [address] [place] [address] Social History Tobacco Use Types Packs/Day Years Used Date Smoking Tobacco: Never Assessed Sex and Gender Information Value Date Recorded Sex Assigned at Not on file Legal Sex Male 4:04 AM WELDING MACHINE OPERATOR ARC Gender Identity Not on file Sexual Orientation Not on file documented as of this encounter Plan of Treatment Not on file documented as of this encounter Visit Diagnoses Not on filedocumented in this encounter
--- OUTSIDE RECORDS SUMMARY | 2025-03-31 08:44 | XMS_ITS | Encounter Summary ---
Author Organization [facility] [employer] [facility] Address [address] [place] [address] Care Team Providers Care General Clerk Name Role Phone Unavailable Primary Care Provider Unavailabl e Encounter Details Date Type Department Care Team (Late st Contact Info) Description 03/10/2004 Outpatient Historical Division of Neurology [address] [address] (Excluded Provider) [place] [address] [address] [facility] [address] [place] [address] Social History Tobacco Use Types Packs/Day Years Used Date Smoking Tobacco: Never Assessed Sex and Gender Information Value Date Recorded Sex Assigned at Not on file Legal Sex Male 4:04 AM VEHICLE RETURN ASSOCIATE Gender Identity Not on file Sexual Orientation Not on file documented as of this encounter Plan of Treatment Not on file documented as of this encounter Visit Diagnoses Not on filedocumented in this encounter
--- OUTSIDE RECORDS SUMMARY | 2025-03-31 08:44 | XMS_ITS | Encounter Summary ---
Author Organization [facility] Address [address] [place] [address] Care Team Providers Care Cargo Operations Agent Name Role Phone Unavailable Primary Care Provider Unavailabl e Encounter Details Date Type Department Care Team (Late st Contact Info) Description 09/04/2002 Outpatient Historical Division of Neurology [address] [address] (Excluded Provider) [place] [address] [address] [facility] [address] [place] [address] Social History Tobacco Use Types Packs/Day Years Used Date Smoking Tobacco: Never Assessed Sex and Gender Information Value Date Recorded Sex Assigned at Not on file Legal Sex Male 4:04 AM STUDIO OPERATION ENGINEER Gender Identity Not on file Sexual Orientation Not on file documented as of this encounter Plan of Treatment Not on file documented as of this encounter Visit Diagnoses Not on filedocumented in this encounter
--- OUTSIDE RECORDS SUMMARY | 2025-03-31 08:44 | XMS_ITS | Encounter Summary ---
Author Organization [facility] Address [address] [place] [address] Care Team Providers Care Automatic Bow Maker Machine Tender Name Role Phone Unavailable Primary Care Provider Unavailabl e Encounter Details Date Type Department Care Team (Late st Contact Info) Description 09/07/2001 Outpatient Historical Division of Neurology [address] [address] (Excluded Provider) [place] [address] [address] [facility] [address] [place] [address] Social History Tobacco Use Types Packs/Day Years Used Date Smoking Tobacco: Never Assessed Sex and Gender Information Value Date Recorded Sex Assigned at Not on file Legal Sex Male 4:04 AM COMPUTER SYSTEMS SECURITY ADMINISTRATOR Gender Identity Not on file Sexual Orientation Not on file documented as of this encounter Plan of Treatment Not on file documented as of this encounter Visit Diagnoses Not on filedocumented in this encounter
--- OUTSIDE RECORDS SUMMARY | 2025-03-31 08:44 | XMS_ITS | Encounter Summary ---
Author Organization [facility] Address [address] [place] [address] Care Team Providers Care Road Supervisor Of Engines Name Role Phone Unavailable Primary Care Provider Unavailabl e Encounter Details Date Type Department Care Team (Late st Contact Info) Description 01/16/2002 Outpatient Historical Division of Neurology [address] [address] (Excluded Provider) [place] [address] [facility] [address] [place] [address] Social History Tobacco Use Types Packs/Day Years Used Date Smoking Tobacco: Never Assessed Sex and Gender Information Value Date Recorded Sex Assigned at Not on file Legal Sex Male 4:04 AM CLOTH MERCERIZING SUPERVISOR Gender Identity Not on file Sexual Orientation Not on file documented as of this encounter Plan of Treatment Not on file documented as of this encounter Visit Diagnoses Not on filedocumented in this encounter
--- OUTSIDE RECORDS SUMMARY | 2025-03-31 08:44 | XMS_ITS | Encounter Summary ---
Author Organization [employer] Address [address] [place] [address] Care Team Providers Care Vault Service Mechanic Name Role Phone Unavailable Primary Care Provider Unavailabl e Encounter Details Date Type Department Care Team (Late st Contact Info) Description 07/13/2006 Outpatient Historical Division of Neurology [address] [address] (Excluded Provider) [place] [address] [facility] [address] [place] [address] Social History Tobacco Use Types Packs/Day Years Used Date Smoking Tobacco: Never Assessed Sex and Gender Information Value Date Recorded Sex Assigned at Not on file Legal Sex Male 4:04 AM EXTRA HAND Gender Identity Not on file Sexual Orientation Not on file documented as of this encounter Plan of Treatment Not on file documented as of this encounter Visit Diagnoses Not on filedocumented in this encounter
--- OUTSIDE RECORDS SUMMARY | 2025-03-31 08:44 | XMS_ITS | Encounter Summary ---
Author Organization [email or web address] Address [address] [place] [address] Care Team Providers Care Mixing Technician Name Role Phone Unavailable Primary Care Provider Unavailabl e Encounter Details Date Type Department Care Team (Late st Contact Info) Description 06/16/1999 Outpatient Historical Division of Neurology [address] [address] (Excluded Provider) [place] [address] [facility] [address] [place] [address] Social History Tobacco Use Types Packs/Day Years Used Date Smoking Tobacco: Never Assessed Sex and Gender Information Value Date Recorded Sex Assigned at Not on file Legal Sex Male 4:04 AM IRON MOLDER HELPER Gender Identity Not on file Sexual Orientation Not on file documented as of this encounter Plan of Treatment Not on file documented as of this encounter Visit Diagnoses Not on filedocumented in this encounter
--- OUTSIDE RECORDS SUMMARY | 2025-03-31 08:44 | XMS_ITS | Encounter Summary ---
Author Organization [employer] Address [address] [place] [address] Care Team Providers Care Sewer Connector Name Role Phone Unavailable Primary Care Provider Unavailabl e Encounter Details Date Type Department Care Team (Late st Contact Info) Description 03/29/2000 Outpatient Historical Division of Neurology [address] [address] (Excluded Provider) [place] [address] [facility] [address] [place] [address] Social History Tobacco Use Types Packs/Day Years Used Date Smoking Tobacco: Never Assessed Sex and Gender Information Value Date Recorded Sex Assigned at Not on file Legal Sex Male 4:04 AM LABOR GANG SUPERVISOR Gender Identity Not on file Sexual Orientation Not on file documented as of this encounter Plan of Treatment Not on file documented as of this encounter Visit Diagnoses Not on filedocumented in this encounter
--- OUTSIDE RECORDS SUMMARY | 2025-03-31 08:44 | XMS_ITS | Encounter Summary ---
Author Organization [facility] Address [address] [place] [place] [address] Care Team Providers Care Communications Tower Climber Name Role Phone Elias Zaragoza MD Primary Care Provider Heather Shine RN Unavailable Unavailable Sergey Mcneill MD Unavailable Dio De Leon MD Unavailable Dawson Smith MD Unavailable Encounter Details Date Type Department Care Team (Late st Contact Info) Description 05/03/2023 Lab Requisition 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 - GI [address] [place] [address] Aislinn Dodge PA-C [address] [place] [address] [facility] [place] [phone] 08/06/2025 12:45 PM METER TESTER PRIMARY Appointment [facility] [address] [place] [address] 2nd [place] [address] 08/06/2025 1:00 PM METER TESTER PRIMARY Office Visit [facility] - Hematology/Oncology [address] [place] [phone] Sergey Mcneill MD [address] [facility] HEMATOLOG[facility] & [place] [address] documented as of this encounter Goals Goal Patient Goal Type Associated Problems Recent Progress Patient-Stated? Author Medication Management General On track( 025 8:59 AM METER TESTER PRIMARY) No Mary Mcclain, RN Note: Expected end [...] Priority Date/Time Associated Diagnosis Comments DERMATOPATHOLOGY Routine 05/02/2023 12:0 0 AM CDT documented in this encounter Results * DERMATOPATHOLOGY (05/02/2023 12:00 AM CDT) Case Report Dermatopathology Report Case: [id number] Authorizing Provider: Steve Shetty MD Collected: 05/02/2023 12:00 AM Ordering Location: [facility] DermPath Lab Received: 05/03/2023 07:31 AM Pathologist: Iker Mills MD Specimen: Skin, left neck 11:51 AM CDT DERMATOPATHOLOGY LABORATORY Final Diagnosis Specimen A. SKIN, left neck: SQUAMOUS CELL CARCINOMA, WELL TO MODERATELY DIFFERENTIATED (C44.42) 11:51 AM CDT DERMATOPATHOLOGY LABORATORY at 1151 CDT Clinical History R/O [facility] Path# [id number] 11:51 AM CDT DERMATOPATHOLOGY LABORATORY Gross Description Specimen A: Received is one formalin filled container labeled with the patient's name and designated left neck. The specimen consists of a shave biopsy measuring 10x6x2 mm. Jar 0. 11:51 AM CDT DERMATOPATHOLOGY LABORATORY Microscopic Description Specimen A. SKIN, left neck: There are nests of squamous epithelial cells which arise from the epidermis and extend into the dermis. The nests have only focal central keratinization and rare horn emily formation. 11:51 AM CDT DERMATOPATHOLOGY LABORATORY Disclaimer An external and internal positive and negative controls are appropriate for the histochemical, immunohistochemical and immunofluorescence stain(s) in this case (if any), except where stated explicitly. The performance characteristics of the stain(s) cited in this report were developed and its performance characteristic determined by the Dermatopathology Laboratory at [facility], directed by Dr. Sylvie Mills. These tests need not be, and therefore are not, approved by the [place] Food and Drug Administration. The tests are used for clinical purposes. Billing Codes Specimen Charges Stain Charges 78096 1 11:51 AM CDT DERMATOPATHOLOGY LABORATORY Embedded Images 11:51 AM CDT DERMATOPATHOLOGY LABORATORY Pathology/Cytolog y TISSUE SPECIMEN FROM SKIN / Unknown 05/02/2023 05/03/2023 7:31 AM CDT us Steve Shetty MD LAB - PATHOLOGY/CYTOLOGY ORDER LAV[place] Final Result DERMATOPATHOLOGY LABORATORY [facility] - Department of Dermatology [address], [address] [phone] documented in this encounter Visit Diagnoses Not on filedocumented in this encounter Care Teams Communications Tower Climber Relationship Specialty Start Date End Date Elias Zaragoza MD PCP - General 01/16/18 Heather Shine, RN Registered Nurse Hepatology 01/30/18 Sergey Mcneill MD [address] [place] [address] OF HEMATOLOGY & [place] [address] Hematology and Oncology 05/05/20 Dio De Leon MD [address] [place] [address] OF HEMATOLOGY & [place] [address] Endocrinology 02/08/22 Dawson Smith MD [address] [address] Vascular Surgery 02/05/25 documented as of this encounter
--- OUTSIDE RECORDS SUMMARY | 2025-03-31 08:44 | XMS_ITS | Encounter Summary ---
Author Organization [email or web address] Address [address] [place] [address] Care Team Providers Care Bathing Suit Maker Name Role Phone Unavailable Primary Care Provider Unavailabl e Encounter Details Date Type Department Care Team (Late st Contact Info) Description 01/02/2003 Outpatient Historical Division of Neurology 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
--- OUTSIDE RECORDS SUMMARY | 2025-03-31 08:44 | XMS_ITS | Encounter Summary ---
Author Organization [facility] Address [address] [facility] [place] [address] Care Team Providers Care Frame Stripper Name Role Phone Elias Zaragoza MD Primary Care Provider [phone] Heather Shine RN Unavailable Unavailable Sergey Mcneill MD Unavailable Dio De Leon MD Unavailable Dawson Smith MD Unavailable Reason for Visit * Reason Onset Date Comments MEDICATION REFILL 06/20/2020 Encounter Details Date Type Department Care Team (Late st Contact Info) Description 06/20/2020 Refill [facility] NEPH [address] [place], [place] [phone] Jayne Galarza MD [address] [place] [address] MEDICATION REFILL Social History Tobacco Use Types Packs/Day Years Used Date Smoking Tobacco: Never Smokeless Tobacco: Never Alcohol Use Standard Drinks/Week Comments No 0 (1 standard drink = 0.6 oz pur e alcohol) Sex and Gender Information Value Date Recorded Sex Assigned at Not on file Legal Sex Male 1:09 PM LOT WORKER Gender Identity Not on file Sexual Orientation Not on file documented as of this encounter Plan of Treatment Upcoming Encounters Date Type Department Care Team (Late st Contact Info) Description 04/01/2025 9:00 AM CDT Office Visit [facility] - GI [address] [facility], [place] [phone] Aislinn Dodge PA-C [address] [facility] 3L DIV [place] [phone] 08/06/2025 12:45 PM LOT WORKER Appointment [facility] [address] [facility] 2nd [place] [address] 08/06/2025 1:00 PM LOT WORKER Office Visit [facility] - Hematology/Oncology [address] [place] [phone] Sergey Mcneill MD [address] [facility] OF HEMATOLOGY & [place] [address] documented as of this encounter Goals Goal Patient Goal Type Associated Problems Recent Progress Patient-Stated? Author Medication Management General On track( 025 8:59 AM LOT WORKER) Mary Ricardo RN Note: Expected end date: Ongoing Interventions: Take all medications as prescribed Let your doctor know right away about any changes in your medications Make sure to request a refill of your medication at least one week prior to your last dose documented as of this encounter Visit Diagnoses Diagnosis Hypertension, unspecified type- Primary Chronic kidney disease (CKD), stage III (moderate) (HCC) Chronic kidney disease, Stage III (moderate) Diabetes mellitus type 2 in obese (HCC) Type II or unspecified type diabetes mellitus without mention of complication, not stated as uncontrolled Liver replaced by transplant (HCC) Liver replaced by transplant Recurrent nephrolithiasis Calculus of kidney Anemia in stage 3 chronic kidney disease (HCC) Chronic kidney disease-mineral and bone disorder Hyperuricemia Other abnormal blood chemistry Hyperlipidemia, unspecified hyperlipidemia type Acute renal failure superimposed on stage 3a chronic kidney disease, unspecified acute renal failure type (HCC) documented in this encounter Additional Health Concerns Infection Onset Date Last Indicated Resolved Time COVID-19 Under Investigation 12/06/2021 12/06/2021 12/06/2021 10:00 PM CDT documented as of this encounter Care Teams Frame Stripper Relationship Specialty Start Date End Date Elias Zaragoza MD PCP - General 01/16/18 Heather Shine, ROBERT Registered Nurse Hepatology 01/30/18 Sergey Mcnelil MD [address] [facility] OF HEMATOLOGY & [place] [address] Hematology and Oncology 05/05/20 Dio De Leon MD [address] [facility] OF HEMATOLOGY & [place] [address] Endocrinology 02/08/22 Dawson Smith MD [address] [address] Vascular Surgery 02/05/25 documented as of this encounter
--- OUTSIDE RECORDS SUMMARY | 2025-03-31 08:44 | XMS_ITS | Encounter Summary ---
Author Organization [employer] Address [address] [place] [address] Care Team Providers Care Vp Product Management Name Role Phone Unavailable Primary Care Provider Unavailabl e Encounter Details Date Type Department Care Team (Late st Contact Info) Description 05/23/2002 Outpatient Historical Division of Neurology 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
== END 2025-03-31 08:30 | disposition home or self-care (01) ==
PROVIDERS: PCP Internal Medicine; Visit Provider Urology
DX: N20.0 Calculus of kidney (principal)
CPT/HCPCS: 74018

== ENCOUNTER 2025-06-27 10:08 | Outpatient (CLI) | payer MEDICARE, OTHER, SELFPAY ==
--- NOTE | 2025-06-29 09:07 | WPDPFTINT ---
PFT Procedure Performed PFT Procedure Performed Spirometry with Pre/Post Bronchodilator Plethysmography (Lung Vol) Diffusing Cap (DLCO) Flow Vol Loop PFT Interpretation This is a pulmonary function test with pre and post-bronchodilator spirometry, plethysmography and diffusing capacity. The test was performed and results interpreted in accordance with the 2019 and 2005 ATS/ERS Task Force guidelines respectively using the Global Lung Function Initiative-2012 reference equations. Patient demonstrated good effort and cooperation. Reproducibility criteria were met. The quality of the pre bronchodilator spirometry maneuver was Grade A and post bronchodilator spirometry maneuver was Grade A. Findings: Spirometry: The contour the inspiratory and expiratory flow tracing are normal. The pre bronchodilator FVC is 3.16 L, 71% predicted. The pre bronchodilator FEV1 is 2.32 L, 69% predicted. The pre bronchodilator FEV1: FVC ratio 73%. The post bronchodilator FVC is 3.00 L, representing a 5% decrease. The post bronchodilator FEV1 is 2.28 L, representing a 2% decrease. The post bronchodilator FEV1: FVC ratio is 76%. Plethysmography: The total lung capacity is 5.92 L, 80% predicted. The functional residual capacity is 3.38 L, 84% predicted. The residual volume is 2.65 L, 102% predicted. Diffusing capacity: The diffusing capacity unadjusted for hemoglobin and carboxyhemoglobin is 25.9, 98% predicted. The diffusing capacity adjusted for alveolar volume is 5.12, 136% predicted. Impression: The FEV1 is less than 80% predicted and the FEV1: FVC ratio is greater than 70% consistent with Preserved Ratio Impaired Spirometry (PRISm) with a low FVC. There is no significant improvement after inhaling a single dose of albuterol. The lung volumes are normal. The diffusing capacity is normal. There are no prior studies for comparison
== END 2025-06-27 10:09 | disposition home or self-care (01) ==
LOC: ANHPFT 10:08
PROVIDERS: PCP Internal Medicine; Visit Provider Physician Assistant
DX: R06.09 Other forms of dyspnea (principal)
CPT/HCPCS: 94060; 94726; 94729